=== PATIENT | female | born 1935 | race African-American/Black ===

== ENCOUNTER 2019-04-22 08:28 | Outpatient (CLI) | payer MEDICARE, OTHER, SELFPAY ==
--- NOTE | ~2019-04-22 | US_ITS ---
EXAMINATION: US retroperitoneal duplex ltd EXAM DATE: 04/22/2019 09:36 INDICATION: Hypertension. TECHNIQUE: Multiple grayscale and Doppler images of the kidneys and renal arteries were obtained. Co mparison is made to prior examination from 04/21/2010. FINDINGS: The aorta peak systolic velocity is 114 cm/s. The right renal artery peak systolic velocity is 63 cm/ s in the proximal segment, 45 cm/s in the mid segment, and 53 cm/s in the distal segment. The left re nal artery peak systolic velocity is 55 cm/s in the proximal segment, 36 cm/s in the mid segment, and 59 cm/s in the distal segment. IMPRESSION: 1. Renal artery Doppler velocities within normal limits. Reviewed, dictated and finalized at location A. HANDLE ASSEMBLER
--- NOTE | ~2019-04-22 | US_ITS ---
EXAMINATION: US renal BI EXAM DATE: 04/22/2019 09:37 INDICATION: Hypertension. TECHNIQUE: Multiple grayscale and Doppler images of the kidneys were obtained (by a technologist who performed the scan) and subsequently reviewed. Comparison is made to prior examination from 04/21/2010 . FINDINGS: Right kidney: There is normal contour and echogenicity. It measures 8.9 x 3.6 x 3.9 centimeters. The re is a 2 cm anechoic lesion consistent with cyst. There is no hydronephrosis. Left kidney: There is normal contour and echogenicity. It measures 10.2 x 5.5 x 5.1 centimeters. The re is a cyst measuring 1 cm. There is no hydronephrosis. Bladder unremarkable. IMPRESSION: 1. Small cyst in each kidney. Reviewed, dictated and finalized at location A. ERMAN OPERATOR
[2019-04-22 10:10] LABS: Blood Urea Nitrogen 21 mg/dL (7-17); Calcium 10.6 mg/dL (8.4-10.2); Carbon Dioxide 26 mmol/L (22-30); Chloride 101 mmol/L (98-107); Estimated Glomerular Filt Rate 44; Glucose 108 mg/dL (65-105); Potassium 4.9 mmol/L (3.4-5.0); Sodium 140 mmol/L (137-145)
== END 2019-04-22 08:29 | disposition home or self-care (01) ==
PROVIDERS: PCP Internal Medicine; Visit Provider Internal Medicine
DX: I12.9 Hypertensive chronic kidney disease with stage 1 through stage 4 chronic kidney disease, or unspecified chronic kidney disease (principal); R79.89 Other specified abnormal findings of blood chemistry; E11.22 Type 2 diabetes mellitus with diabetic chronic kidney disease; N18.1 Chronic kidney disease, stage 1; N28.1 Cyst of kidney, acquired
CPT/HCPCS: 36415; 76775; 80048; 93976

== ENCOUNTER 2020-04-03 08:27 | Outpatient (CLI) | payer MEDICARE, OTHER, SELFPAY ==
--- NOTE | ~2020-04-03 | MM_ITS ---
EXAMINATION: MM screening krystyna BI w eric HISTORY: Screening TECHNIQUE: Craniocaudal and mediolateral oblique 3-D tomosynthesis images were obtained and synthetic 2-D images were generated. CAD analysis was submitted and interpreted. COMPARISON: Comparison to multiple prior studies sequentially, with oldest reviewed study dated 09/2015. BREAST PARENCHYMAL COMPOSITION: The breasts are heterogeneously dense, which may obscure small masses . FINDINGS: There is no evidence of suspicious mass, calcification, or architectural distortion to sugg est malignancy in either breast. There has been no suspicious interval change. IMPRESSION: 1. No mammographic evidence of malignancy. 2. Recommend routine screening mammography in one year. BI-RADS Category 1: Negative Reviewed, dictated and finalized at location A. VERY TECH
== END 2020-04-03 08:28 | disposition home or self-care (01) ==
LOC: ANHIMG 08:32
PROVIDERS: PCP Internal Medicine; Visit Provider Student in an Organized Health Care Education/Training Program
DX: Z12.31 Encounter for screening mammogram for malignant neoplasm of breast (principal)
CPT/HCPCS: 77063; 77067

== ENCOUNTER 2020-11-19 14:31 | Emergency (ER) | payer MEDICARE, OTHER, SELFPAY ==
[2020-11-19 14:43] VITALS: BP 186/78; PULSE 92; RESP 16; TEMP 36.9; O2SAT 100
--- NOTE | 2020-11-19 14:44 | ED.BACK ---
HPI - Back Pain/Injury General Chief Complaint: Back Pain/Injury Stated Complaint: L SHOULDER/NECK PAIN Time Seen by Provider: 11/19/20 15:20 Source: patient and RN notes reviewed Mode of arrival: ambulatory Limitations: no limitations History of Present Illness HPI Narrative: 85-year-old female presents with concern for 2 to 3-day history of pain between the left-sided neck and the left shoulder. Reports that as a spine is numbing type of pain. She reports pain worsens when she turns her head toward the left. She denies any injury, trauma. Reports repetitive yard work earlier this week. She denies chest pain, shortness of breath. Denies pain radiating down the left arm. She denies any left arm weakness, tingling. Reports she took Tylenol which slightly eased the pain, reports she used heat which slightly eased the pain. She denies redness, warmth, rash. MD elicited complaint: back pain Related Data Home Medications Medication Instructions Recorded Confirmed antiarthritic combination no.2 900 900 mg PO DAILY 04/11/19 11/19/20 mg tablet ascorbate calcium (vitamin C) 500 500 mg PO DAILY 04/11/19 11/19/20 mg tablet omega-3 fatty acids 1,000 mg 1,000 mg PO DAILY 04/11/19 11/19/20 capsule vitamin E (dl, acetate) 180 mg 400 unit PO DAILY 04/11/19 11/19/20 (400 unit) capsule multivitamin 1 tablet PO DAILY 01/01/20 11/19/20 Allergies Allergy/AdvReac Type Severity Reaction Status Date / Time No Known Allergies Allergy Verified 11/19/20 14:39 Review of Systems Review of Systems: CONSTITUTIONAL: Denies malaise, chills, sweats, or fever. CARDIOVASCULAR: Denies chest pain, palpitations, or edema. RESPIRATORY: Denies cough or dyspnea. SKIN: Denies rash or itching. Denies bruising, redness, swelling, warmth MUSCULOSKELETAL: Reports pain and spasming between the left neck and left shoulder NEUROLOGIC: Denies numbness, weakness, or headache. All systems reviewed & are unremarkable except as noted in HPI and below PMFSH Past Medical History Medical History Accelerated hypertension Benign essential hypertension Bilateral carotid bruits Bilateral hearing loss BMI 27.0-27.9,adult BMI 28.0-28.9,adult CKD (chronic kidney disease) Dependent edema DJD (degenerative joint disease) DM type 2 (diabetes mellitus, type 2) Elevated serum creatinine Encounter for routine adult health examination without abnormal findings Follow up Hypercalcemia Hyperlipidemia On fci drug therapy Surgical History Surgical History History of dilation and curettage History of hysterectomy Family History Family History Mother Hypertension Patient's mother is in good health Family history of dementia Father Acute myocardial infarction Social History Social History Smoking status: Never smoker Second hand tobacco smoke exposure: No Smoking end date: 03/06/1967 Alcohol intake: never Comments At time of signature, agree with nursing past medical, surgical, social and family history. There is no relevant family history pertinent to the presenting complaint Exam Narrative: GENERAL: Well-appearing, well-nourished, and in no acute distress. HEAD: Normocephalic, atraumatic. EYES: PERRLA, sclera clear, and EOMI. No nystagmus. ENT: Nares clear. Mucous membranes moist. . NECK: Supple. No lymphadenopathy. No jugular venous distension, thyromegaly, or carotid bruits. Carotids were easily palpable bilaterally. CHEST: No respiratory distress. Speaks in full sentences. HEART: Regular rate and rhythm. EXTREMITIES: Left upper extremity has normal range of motion, normal strength and sensation. No neck or shoulder tenderness palpation. SKIN: Warm, dry, no visible rash. No skin erythema, warmth, bruising, swelling NE
[2020-11-19 14:50] VITALS: BP 186/78; PULSE 92; RESP 16; TEMP 36.9; O2SAT 100
== END 2020-11-19 15:40 | disposition home or self-care (01) ==
PROVIDERS: Emergency Provider Nurse Practitioner; PCP Internal Medicine
DX: M43.6 Torticollis (principal); I12.9 Hypertensive chronic kidney disease with stage 1 through stage 4 chronic kidney disease, or unspecified chronic kidney disease; E11.22 Type 2 diabetes mellitus with diabetic chronic kidney disease; N18.9 Chronic kidney disease, unspecified
CPT/HCPCS: 99213; G0463

== ENCOUNTER 2021-04-22 09:06 | Outpatient (CLI) | payer MEDICARE, OTHER, SELFPAY ==
--- NOTE | ~2021-04-22 | MM_ITS ---
EXAMINATION: MM screening krystyna BI w eric HISTORY: Screening TECHNIQUE: Craniocaudal and mediolateral oblique 3-D tomosynthesis images were obtained and synthetic 2-D images were generated. CAD analysis was submitted and interpreted. COMPARISON: Comparison to multiple prior studies sequentially, with oldest reviewed study dated 10/2016. BREAST PARENCHYMAL COMPOSITION: The breasts are heterogeneously dense, which may obscure small masses . FINDINGS: There is no evidence of suspicious mass, calcification, or architectural distortion to sugg est malignancy in either breast. There has been no suspicious interval change. IMPRESSION: 1. No mammographic evidence of malignancy. 2. Recommend routine screening mammography in one year. BI-RADS Category 1: Negative Reviewed, dictated and finalized at location A. L COATER
== END 2021-04-22 09:07 | disposition home or self-care (01) ==
LOC: ANHIMG 09:09
PROVIDERS: PCP Internal Medicine; Visit Provider Internal Medicine
DX: Z12.31 Encounter for screening mammogram for malignant neoplasm of breast (principal)
CPT/HCPCS: 77063; 77067

== ENCOUNTER 2021-07-29 14:39 | Outpatient (CLI) | payer MEDICARE, OTHER, SELFPAY ==
--- NOTE | 2021-07-29 15:02 | ECHO_ITS ---
Patient Info Name: Loraine George White Age: 85 years : 1935 Gender: Female Ht: 67 in Wt: 175 lbs BSA: 1.95 m2 HR: 82 bpm BP: 191 / 84 mmHg Technical Quality: Good Exam Date: 07/29/2021 3:17 PM Exam Location: [facility] Patient Status: Outpatient Admit Date: 07/29/2021 Staff Ordering Physician: Juan Carlos Eisenberg MD Automotive Assembler: Blanca Shipley RDCS Attending Provider: Juan Carlos Eisenberg MD Referring Physician: Faina DOLAN; Exam Type: CA echo doppler color flow Study Info Indications - chest pain ventricular premature depolrazation Complete two-dimensional, color flow and Doppler transthoracic echocardiogram is performed. Summary 1. Complete two-dimensional, color flow and Doppler transthoracic echocardiogram is performed. 2. Left ventricular chamber dimension is normal. 3. Left ventricular systolic function is normal, estimated at 60-65%. 4. There is mildly increased left ventricular wall thickness. 5. The left ventricular diastolic function is grade I diastolic dysfunction. 6. E/e' 14 is mildly elevated. 7. Global longitudinal strain is normal at -25.2%. 8. Left atrial chamber dimension is severely enlarged. 9. There is mild mitral valve regurgitation. 10. There is mild tricuspid valve regurgitation. 11. Severe pulmonary hypertension, estimated pulmonary arterial systolic pressure is 66 mmHg. 12. There is trivial pericardial effusion. Left Ventricle E/e' 14 is mildly elevated. Global longitudinal strain is normal at -25.2%. Left ventricular chamber dimension is normal. Left ventricular systolic function is normal, estimated at 60-65%. There is mildly increased left ventricular wall thickness. The left ventricular diastolic function is grade I diastolic dysfunction. Right Ventricle Right ventricular systolic function is normal and with normal TAPSE 2.2 cm. Right ventricular chamber dimension is normal. Left Atria Left atrial chamber dimension is severely enlarged. Right Atria Right atrial chamber dimension is normal. Aortic Valve The aortic valve is trileaflet. There is no aortic valve stenosis. There is no aortic valve regurgitation. Pulmonic Valve There is no pulmonic regurgitation. Mitral Valve There is no mitral valve stenosis. There is mild mitral valve regurgitation. Tricuspid Valve There is mild tricuspid valve regurgitation. Severe pulmonary hypertension, estimated pulmonary arterial systolic pressure is 66 mmHg. Pericardium/Pleural There is trivial pericardial effusion. Inferior Vena Cava Normal inferior vena cava with >50% collapse upon inspiration consistent with normal right atrial pressure, 5 mmHg. Aorta The aortic root size at the sinus of Valsalva is normal. Left Ventricular Outflow Tract Name Value Normal LVOT 2D LVOT Diameter 2.0 cm LVOT Doppler LVOT Peak Gradient 9 mmHg LVOT Mean Gradient 5 mmHg LVOT VTI 34 cm LVOT VTI/AV VTI Ratio 0.8 LVOT Stroke Volume 108 ml LVOT CO
--- NOTE | 2021-08-04 15:20 | WPDHOLTEREM ---
Holter/Event Monitor Holter/Event Monitor Date of procedure: 07/29/21 Holter/Event Procedure: 48 Hr Holter Monitor Indications: PVC's Conclusion: 1. 48 hour holter monitor on 07/29/21. 2. Predominant rhythm is sinus rhythm. HR range 34-126 bpm; average HR 60 bpm. HR at 34 bpm is at 03:07. 3. There are 2,877 premature supraventricular complexes, 18 supraventricular couplets, 43 supraventricular bigeminy, and 15 supraventricular trigeminy. There is one episode of atrial tachycardia at 158 bpm lasting 7 beats. 4. There are 730 premature ventricular complexes, 11 ventricular couplets, 1 ventricular triplet, 29 ventricular bigeminy. There is one episode of ventricular tachycardia at 150 bpm lasting 6 beats. 5. No sinoatrial or atrioventricular blocks. One pause 2.2 seconds at 03:51. 6. No symptoms available for correlation.
== END 2021-07-29 14:40 | disposition home or self-care (01) ==
PROVIDERS: PCP Internal Medicine; Visit Provider Internal Medicine
DX: R07.89 Other chest pain (principal); I49.3 Ventricular premature depolarization; I27.20 Pulmonary hypertension, unspecified; I08.1 Rheumatic disorders of both mitral and tricuspid valves
CPT/HCPCS: 93225; 93226; 93306

== ENCOUNTER 2021-08-12 12:09 | Outpatient (CLI) | payer MEDICARE, OTHER, SELFPAY ==
--- NOTE | ~2021-08-12 | CT_ITS ---
EXAMINATION: CT diagnostic chest wo con DATE: 08/12/2021 12:56 INDICATION: Pulmonary hypertension TECHNIQUE: Computed tomography (CT) of the chest was performed without intravenous contrast. Automate d exposure control and iterative reconstruction technique were employed. Exam dose: 133.02 mGy-cm to tadeo exam DLP. COMPARISON: None FINDINGS: The lungs are clear of infiltrate or consolidation. There is heterogeneous density and mild enlargement of the right lobe of thyroid gland. Cardiomegaly. No pericardial or pleural effusion. There is aortic and great vessel and coronary artery calcification. No thoracic aortic aneurysm. No hilar or mediastinal mass lesion or lymphadenopathy. There is prominent calcification at the origins of the celiac, superior mesenteric and left renal art eries. 4.5 cm left hepatic cyst. 6.7 mm hypoattenuating right posterior hepatic lesion, possibly a small cyst. No adrenal mass lesion is evident. There is incomplete rotation of the left kidney, with the left renal pelvis directed anteriorly. Prominent bilateral glenohumeral joint space narrowing and benign humeral head and glenoid cysts, lik alon degenerative. Prominent degenerative changes of the lower cervical, thoracic and included upper lumbar spine, inclu ding very prominent degenerative spurring throughout the mid and lower thoracic spine. No suspicious osteolytic or osteoblastic lesions are noted. IMPRESSION: Cardiomegaly Aortic and coronary atherosclerosis Prominent atherosclerotic calcification at the origins of the celiac, superior mesenteric and left re nal arteries No active pulmonary disease Heterogeneous density and enlargement of right lobe of thyroid gland Hepatic probable cysts Reviewed, dictated and finalized at Location A. Reviewed, dictated and finalized at location A. IMPRESSION: Cardiomegaly Aortic and coronary atherosclerosis Prominent atherosclerotic calcification at the origins of the celiac, superior mesenteric and left renal arteries No active pulmonary disease Heterogeneous density and enlargement of right lobe of thyroid gland Hepatic probable cysts
== END 2021-08-12 12:10 | disposition home or self-care (01) ==
LOC: ANHIMG 12:12
PROVIDERS: PCP Internal Medicine; Visit Provider Internal Medicine
DX: I27.20 Pulmonary hypertension, unspecified (principal); I51.7 Cardiomegaly; I25.10 Atherosclerotic heart disease of native coronary artery without angina pectoris
CPT/HCPCS: 71250

== ENCOUNTER 2021-08-25 11:53 | Outpatient (CLI) | payer MEDICARE, OTHER, SELFPAY ==
--- NOTE | 2021-08-25 14:36 | WPDSIXMINUTE ---
Six Minute Walk Procedure Procedure Performed Pulmonary Stress Test (6 min walk) Six Minute Walk Six Minute Walk: This 6 minute walk test was carried out with the patient breathing ambient air. The pre walk oxyhemoglobin saturation was 91%. The patient walked a total distance of 1000 ft with no stops during testing. During the walk the oxyhemoglobin saturation remained in the range of 89% to 91%. The perceived dyspnea on the Sharri scale was 1 at baseline and increased to 2 at the end of the testing. Impression: No significant oxyhemoglobin desaturation on this testing.
--- NOTE | 2021-08-25 14:41 | WPDPFTINT ---
PFT Procedure Performed PFT Procedure Performed Spirometry with Pre/Post Bronchodilator Plethysmography (Lung Vol) Diffusing Cap (DLCO) Flow Vol Loop PFT Interpretation Lung volumes were measured with the body plethysmography method. The diminished lung volumes are indicative of restrictive respiratory disease. Spirometry showed normal expiratory flow rates and a normal FEV1 to FVC ratio of 80%. Following administration of a bronchodilator there was no significant change in the expiratory flow rates. Lung diffusion capacity is moderately reduced at 50% predicted. The flow volume loop is unremarkable. Impression: Mild restrictive respiratory disease. Moderately reduced lung diffusion capacity.
== END 2021-08-25 11:54 | disposition home or self-care (01) ==
PROVIDERS: PCP Internal Medicine; Visit Provider Internal Medicine
DX: I27.20 Pulmonary hypertension, unspecified (principal)
CPT/HCPCS: 94060; 94618; 94726; 94729

== ENCOUNTER 2021-08-28 09:11 | Outpatient (CLI) | payer MEDICARE, OTHER, SELFPAY ==
--- NOTE | ~2021-08-28 | CT_ITS ---
EXAMINATION: CTA abdomen DATE: 08/28/2021 10:54 INDICATION: Abdominal atherosclerosis seen in the recent chest CT TECHNIQUE: Computed tomographic angiography (CTA) of the abdomen was performed with 100 mL Omnipaque- 350 intravenous contrast. Maximum intensity projection 3D-reconstructions of the aorta and other gabi sandra were constructed by the technologist on a separate workstation. The dose-length product (DLP) wa s 198.20 mGy-cm. Automated exposure control and iterative reconstruction technique were employed. COMPARISON: 08/13/2019 FINDINGS: Minimal dependent atelectasis is present in the lung bases. Cardiomegaly is noted. There is a 4.8 cm cyst of the left hepatic lobe. The spleen, pancreas, gallbladder, and adrenal glands are un remarkable. There is a 2.2 cm cyst of the right kidney lower pole. The left kidney demonstrates an ab normal axis but is otherwise unremarkable. There is severe lumbar spondylosis. There is a large volum e of colonic stool. A tiny fat-containing umbilical hernia is noted. There is calcified atherosclerosis without hemodynamically significant stenosis at the origins of the celiac axis and superior mesenteric artery. Single renal arteries are present. There is calcified at herosclerosis with severe stenosis at the origin of left renal artery. There is mild atherosclerosis without hemodynamically significant stenosis at the origin of the right renal artery. There is no ane urysm or dissection of the abdominal aorta. IMPRESSION: 1. 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 Reviewed, dictated and finalized at location A. IMPRESSION: 1. 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
[2021-08-28 10:42] LABS: Estimated Glomerular Filt Rate 57
== END 2021-08-28 09:12 | disposition home or self-care (01) ==
PROVIDERS: PCP Internal Medicine; Visit Provider Internal Medicine
DX: I70.8 Atherosclerosis of other arteries (principal); K55.1 Chronic vascular disorders of intestine
CPT/HCPCS: 74175; Q9967

== ENCOUNTER 2021-09-02 09:37 | Outpatient (CLI) | payer MEDICARE, OTHER, SELFPAY ==
--- NOTE | ~2021-09-02 | DEXA_ITS ---
Bone Density Report Name: NAYELI HUA Age: 85 Sex: Female Ethnicity: Black Date of : 1935 Indication: monitoring treatment; height loss; hysterectomy; postmenopausal Referring Provider: LEIGH GIBSON Study: Bone densitometry was performed. Exam Date: September 02, 2021 Accession number: [id number] Bone Density: Region BMD T-score Z-score Classification AP Spine(L1, L2, L3) 0.982 -0.3 1.8 Normal Femoral Neck (Left) 0.770 -0.7 0.7 Normal Total Hip (Left) 0.854 -0.7 0.6 Normal Femoral Neck (Right) 0.756 -0.8 0.6 Normal Total Hip (Right) 0.797 -1.2 0.2 Osteopenia Total Hip Mean 0.826 -1.0 0.4 Normal World Health Organization criteria for BMD impression classify patients as: Normal (T-score at or above -1.0), Osteopenia (T-score between -1.0 and -2.5), or Osteoporosis (T-score at or below -2.5). 10-year Fracture Risk: FRAX not reported because: Treated for osteoporosis Previous Exams: Region Exam Age BMD T-score BMD Change BMD Change Date g/cm2 vs Baseline vs Previous AP Spine (L1-L3) 09/02/2021 85 0.982 -0.3 0.050 (5.4%)# -0.053 (-5.2%) 06/04/2015 79 1.035 0.2 0.104 (11.1%)# 0.104 (11.1%)# 01/18/2012 76 0.931 -0.8 Total Hip(Left) 09/02/2021 85 0.854 -0.7 -0.055 (-6.0%) -0.079 (-8.5%) 06/04/2015 79 0.934 -0.1 0.025 (2.7%)# 0.025 (2.7%)# 01/18/2012 76 0.909 -0.3 Total Hip(Right) 09/02/2021 85 0.797 -1.2 -0.056 (-6.6%) -0.115 (-12.6% 06/04/2015 79 0.912 -0.2 0.059 (6.9%)# 0.059 (6.9%)# 01/18/2012 76 0.853 -0.7 *Denotes significance at 95% confidence level, LSC for AP Spine = 0.022 g/cm2, LSC for Total Hip = 0.027 g/cm2 # Denotes dissimilar scan types or analysis methods Clinical Information Provided by Patient: Is being treated for osteoporosis Has used the following medications: Fosamax (i.e. alendronate), Vitamin D, Calcium Has the following medical conditions: Hysterectomy Patient maximum height was 70 Menopause Age: 50 Drinks caffeinated beverages Onset of menses at age 17 Number of children 3 Impression: The patient has low bone mass, based on the Right Total Hip T-score. The BMD for the AP Spine (L1-L3) decreased, changing by -5.2% since the last DXA exam. The BMD for the Total Hip(Left) decreased, changing by -8.5% since the last DXA exam. The BMD for the Total Hip(Right) decreased, changing by -12.6% since the last DXA exam. Discussion: SIGNIFICANT BONE LOSS OBSERVED. Ad
== END 2021-09-02 09:38 | disposition home or self-care (01) ==
PROVIDERS: PCP Internal Medicine; Visit Provider Student in an Organized Health Care Education/Training Program
DX: Z78.0 Asymptomatic menopausal state (principal); M85.851 Other specified disorders of bone density and structure, right thigh
CPT/HCPCS: 77080

== ENCOUNTER 2021-10-29 10:58 | Outpatient (CLI) | payer MEDICARE, OTHER, SELFPAY ==
--- NOTE | ~2021-10-29 | XR_ITS ---
EXAMINATION: XR chest 2V 10/29/2021 11:17 INDICATION: Pulmonary hypertension PROCEDURE: 2 view chest COMPARISON: No prior studies for comparison. FINDINGS: The lungs are clear. The lungs are hyperinflated which is consistent with, but not diagnost ic of chronic obstructive pulmonary disease. The cardiomediastinal silhouette is within normal limit s. There are no pleural effusions. There is no pneumothorax suspected. Moderate thoracic spondylosi s. IMPRESSION: 1: NO ACUTE CARDIOPULMONARY DISEASE. Reviewed, dictated and finalized at location A.
--- NOTE | ~2021-10-29 | NM_ITS ---
EXAMINATION: NM pulmonary perfusion DATE: 10/29/2021 11:52 INDICATION: Pulmonary hypertension. TECHNIQUE: 5.5 mCi Tc-99m MAA was administered intravenously for perfusion images. Scintigraphic augustus ges of the chest were obtained. COMPARISON: Chest 2 views 10/29/2021, CT abdomen 08/28/2021 FINDINGS: Perfusion images show small and moderate sized defects involving left lower lobe and left upper lobe. Cardiomegaly is noted. IMPRESSION: 1. Nondiagnostic (intermediate probability for pulmonary embolism). Reviewed, dictated and finalized at location A.
== END 2021-10-29 10:59 | disposition home or self-care (01) ==
PROVIDERS: PCP Internal Medicine; Visit Provider Internal Medicine Pulmonary Disease
DX: R06.02 Shortness of breath (principal)
CPT/HCPCS: 71046; 78580; A9540

== ENCOUNTER 2022-06-16 09:12 | Outpatient (CLI) | payer MEDICARE, OTHER, SELFPAY ==
--- NOTE | ~2022-06-16 | MM_ITS ---
EXAMINATION: MM screening krystyna BI w eric HISTORY: Screening mammogram TECHNIQUE: Craniocaudal and mediolateral oblique 3-D tomosynthesis images were obtained and synthetic 2-D images were generated. CAD analysis was submitted and interpreted. COMPARISON: April 22, 2021, April 03, 2020 screening mammogram examinations BREAST PARENCHYMAL COMPOSITION: The breasts are heterogeneously dense, which may obscure small masses . FINDINGS: There is no evidence of suspicious mass, calcification, or architectural distortion to sugg est malignancy in either breast. There has been no suspicious interval change. IMPRESSION: 1. No mammographic evidence of malignancy. 2. Recommend routine screening mammography in one year. BI-RADS Category 1: Negative Reviewed, dictated and finalized at location A.
== END 2022-06-16 09:13 | disposition home or self-care (01) ==
PROVIDERS: PCP Internal Medicine; Visit Provider Internal Medicine
DX: Z12.31 Encounter for screening mammogram for malignant neoplasm of breast (principal)
CPT/HCPCS: 77063; 77067

== ENCOUNTER 2023-08-15 09:09 | Outpatient (CLI) | payer MEDICARE, OTHER, SELFPAY ==
--- NOTE | ~2023-08-15 | MM_ITS ---
EXAMINATION: MM screening krystyna BI w eric HISTORY: Screening TECHNIQUE: Craniocaudal and mediolateral oblique 3-D tomosynthesis images were obtained and synthetic 2-D images were generated. CAD analysis was submitted and interpreted. COMPARISON: Comparison to multiple prior studies sequentially, with oldest reviewed study dated 05/2018. BREAST PARENCHYMAL COMPOSITION: Not dense: There are scattered areas of fibroglandular density. FINDINGS: There is no evidence of suspicious mass, calcification, or architectural distortion to sugg est malignancy in either breast. There has been no suspicious interval change. IMPRESSION: 1. No mammographic evidence of malignancy. 2. Recommend routine screening mammography in one year. BI-RADS Category 1: Negative Reviewed, dictated and finalized at location B.
== END 2023-08-15 09:10 | disposition home or self-care (01) ==
PROVIDERS: PCP Internal Medicine; Visit Provider Obstetrics & Gynecology
DX: Z12.31 Encounter for screening mammogram for malignant neoplasm of breast (principal)
CPT/HCPCS: 77063; 77067

== ENCOUNTER 2024-04-13 12:52 | Emergency (ER) | payer MEDICARE, OTHER, SELFPAY ==
[2024-04-13 13:58] VITALS: BP 151/71; PULSE 98; RESP 16; TEMP 36.6; O2SAT 98
--- NOTE | 2024-04-13 14:01 | ED.BACK ---
HPI - Back Pain/Injury General Chief Complaint: Back Pain/Injury Stated Complaint: BACK PAIN/BILAT KNEE PAIN/UNSTEADY Time Seen by Provider: 04/13/24 14:00 Source: patient Mode of arrival: ambulatory Limitations: no limitations History of Present Illness HPI Narrative: Loraine is an 88-year-old female patient presenting to the clinic today with complaints of low back pain, urinary incontinence, legs feeling wobbly, and unsteady on her feet. She reports symptoms started approximately 5 days ago. Related Data Home Medications ?Medication ?Instructions ?Recorded ?Confirmed ?Last Taken ?Type antiarthritic combination no.2 900 900 mg PO DAILY 04/11/19 02/26/24 Unknown History mg tablet (glucosamine-chondroitin) ascorbate calcium (vitamin C) 500 500 mg PO DAILY 04/11/19 02/26/24 Unknown History mg tablet omega-3 fatty acids 1,000 mg 1,000 mg PO DAILY 04/11/19 02/26/24 Unknown History capsule (Fish Oil Concentrate) vitamin E (dl, acetate) 180 mg 400 unit PO DAILY 04/11/19 02/26/24 Unknown History (400 unit) capsule multivitamin 1 tablet PO DAILY 01/01/20 02/26/24 Unknown History Allergies Allergy/AdvReac Type Severity Reaction Status Date / Time No Known Allergies Allergy Verified 04/13/24 13:50 Review of Systems Review of Systems: Pertinent positives per HPI. Patient denies any fever, chills, rash, headache, visual changes, dizziness, cough, runny nose, sore throat, shortness of breath, chest pain, palpitations, nausea, vomiting, diarrhea, constipation, abdominal pain. [facility] Past Medical History Medical History History of tobacco abuse BMI 26.0-26.9,adult Renal artery stenosis Grade I diastolic dysfunction BMI 24.0-24.9, adult Encounter for Medicare annual wellness exam Abnormal mammogram Osteopenia Pedal edema Bunion PVC's (premature ventricular contractions) Onychomycosis Hammer toe Thickened nails BMI 25.0-25.9,adult BMI 28.0-28.9,adult Bilateral hearing loss Dependent edema Bilateral carotid bruits BMI 27.0-27.9,adult CKD (chronic kidney disease) Follow up Accelerated hypertension Elevated serum creatinine DM type 2 (diabetes mellitus, type 2) Encounter for routine adult health examination without abnormal findings On halfway drug therapy DJD (degenerative joint disease) Hypercalcemia Hyperlipidemia Benign essential hypertension Surgical History Surgical History History of dilation and curettage History of hysterectomy Family History Family History Mother Hypertension Patient's mother is in good health Family history of dementia Father Acute myocardial infarction Social History Social History Years smoked: 5 Smoking status: Former smoker Tobacco type: cigarettes Second hand tobacco smoke exposure: Yes Smoking end date: 03/06/1967 Alcohol intake: former Lack of Transportation: No Lack of Food: Never True Current Housing: I Have Housing Concerned About Future Housing: No Difficulty Paying Gas/Electric Bills: No Difficulty Paying for Meds: No Currently Unemployed: No Education: High School Diploma/GED Difficulty w/ Childcare or Family Care: No Living arrangements: with family Occupation/Education: retired Gender identity (if verbalized by the patient): Female Comments At the time of my signature, I reviewed and agree with the nursing past medical, surgical, social, and family history. There is no relevant family history pertinent to the patient complaint. Exam Narrative: General: Well-developed, well nourished, in no apparent distress Head: Normocephalic, atraumatic. Cardio: Regular rate and rhythm, s1 and s2 normal, no murmur appreciated. Resp: Clear to auscultation bilaterally, no rhonchi, rales, wheezing or rubs. Musculoskeletal: No deformity, bilateral lower back tender pulp drier to palpation, grossly normal range of motion, muscle strength strong and equal, peripheral pulse strong, no edema, no cyanosis, cautious gait and station, sitting in a wheelchair Course Course Emergency Course: Portions of this record may have been created with voice recognition software. Level of Care: Express Care Visit Vital Signs Vital signs: Vital Signs Temperature 36.6 C 04/13/24 13:58 Pulse Rate 98 04/13/24 13:58 Respiratory Rate 16 04/13/24 13:58 Blood Pressure 151/71 H 04/13/24 13:58 Pulse Oximetry 98 04/13/24 13:58 Temperature 36.6 C 04/13/24 13:58 Pulse Rate 98 04/13/24 13:58 Respiratory Rate 16 04/13/24 13:58 Blood Pressure 151/71 H 04/13/24 13:58 Pulse Oximetry 98 04/13/24 13:58 Vital signs reviewed MDM - Back Pain/Injury MDM Narrative Medical decision making narrative: At the time of visit patient is resting comfortably on the exam table. Patient appears to be nontoxic. Labs: Urinalysis positive for protein, glucose, and blood. We will send for culture Plan: I suspect patient likely has a UTI. Prescription for ciprofloxacin was sent to the pharmacy. Supportive measures were discussed with the patient and they voiced understanding discharge instructions and agrees to treatment plan. Return precautions reviewed Differential Diagnosis Differential diagnosis: Likely lumbar radiculopathy, sciatica, strain of lumbar region, renal colic, pyelonephritis, thoracic back pain, AAA, discitis and other (UTI) Lab Data Labs: Lab Results 04/13/24 Range/Units 14:27 POC Urine Color Yellow POC Urine Clarity Clear POC Urine pH 5.5 POC Ur Specif [place] 1.010 POC Urine Protein 2+ (Negative) POC Ur Glucose (UA) 3+ (Negative) POC Urine Ketones Negative (Negative) POC Urine Blood Trace (Negative) POC Urine Nitrite Negative (Negative) POC Urine Bilirubin Negative (Negative) POC Urine Urobilinogen 1.0 POC U Leukocyte Esteras Negative (Negative) Discharge Plan Discharge Clinical Impression: Glucosuria Protein in urine Qualifiers: Proteinuria type: unspecified Qualified Code(s): R80.9 - Proteinuria, unspecified Hematuria Qualifiers: Hematuria type: unspecified type Qualified Code(s): R31.9 - Hematuria, unspecified Low back pain Qualifiers: Chronicity: acute Back pain laterality: bilateral Sciatica presence: without sciatica Qualified Code(s): M54.50 - Low back pain, unspecified Patient Disposition: Home, Self-Care Condition: Stable Instructions: Antibiotic Form, Acute Low Back Pain (ED) Additional Instructions: Urinalysis positive for protein, blood, and glucose. We will send urine for culture Take any prescription medication only as prescribed-Bactrim as prescribed May use heat or ice to the affected area May use blue emu, lidocaine patches, or asper cream to affected area- do not apply heat or ice directly over cream- can cause burn. Increase fluids and stay well hydrated Wipe front to back. May use wet wipes. Avoid tub baths If sexually active- pee before and after intercourse. Wear cotton panties Avoid tight clothing up against the genitals Follow up with your PCP in 3-5 days if symptoms persist Patient Language: Kyrgyz Prescriptions: New ciprofloxacin HCl [Cipro] 500 mg tablet 500 mg PO Q12H 7 Days Qty: 14 0RF No Action multivitamin Tablet 1 tablet PO DAILY diltiazem HCl 240 mg capsule,extended release 24hr 240 mg PO BID Qty: 180 1RF ascorbate calcium (vitamin C) 500 mg tablet 500 mg PO DAILY vitamin E (dl, acetate) 400 unit capsule 400 unit PO DAILY glucosamine-chondroitin 900 mg tablet 900 mg PO DAILY omega-3 fatty acids [Fish Oil Concentrate] 1,000 mg capsule 1,000 mg PO DAILY Rx Instructions: Pt only taking 400 daily hydralazine 100 mg tablet 100 mg PO BID Qty: 180 1RF aspirin [Adult Low Dose Aspirin] 81 mg tablet,delayed release (DR/EC) 81 mg PO DAILY Qty: 90 2RF cholecalciferol (vitamin D3) 25 mcg (1,000 unit) capsule 1,000 unit PO DAILY Qty: 90 1RF Jardiance 25 mg tablet 25 mg PO DAILY Qty: 90 1RF guanfacine 2 mg tablet 2 mg PO DAILY Qty: 90 1RF rosuvastatin 20 mg tablet 20 mg PO DAILY Qty: 90 1RF telmisartan-hydrochlorothiazid 80-25 mg tablet 1 tablet PO DAILY Qty: 90 3RF Follow-up/Referrals: Juan Carlos Eisenberg MD [Primary Care Provider] - Time of Disposition: 14:35 Quality NIHSS Nursing Documentation ED NIHSS nursing documentation: reviewed/agree
[2024-04-13 14:29] LABS: EDUAAPPEAR Clear; EDUABILI Negative (Negative); EDUABLOOD Trace (Negative); EDUACOLOR1 Yellow; EDUAGLUCOSE 3+ (Negative); EDUAKETONE Negative (Negative); EDUALEUKO Negative (Negative); EDUANITRATE Negative (Negative); EDUAPH 5.5; EDUAPROTEIN 2+ (Negative)
== END 2024-04-13 14:46 | disposition home or self-care (01) ==
PROVIDERS: Emergency Provider Nurse Practitioner Family; PCP Internal Medicine
DX: R81 Glycosuria (principal); R80.9 Proteinuria, unspecified; R31.9 Hematuria, unspecified; M54.50 Low back pain, unspecified; Z87.891 Personal history of nicotine dependence; I12.9 Hypertensive chronic kidney disease with stage 1 through stage 4 chronic kidney disease, or unspecified chronic kidney disease; E11.22 Type 2 diabetes mellitus with diabetic chronic kidney disease; N18.9 Chronic kidney disease, unspecified; Z79.84 Long term (current) use of oral hypoglycemic drugs; E78.5 Hyperlipidemia, unspecified; M85.80 Other specified disorders of bone density and structure, unspecified site; R09.89 Other specified symptoms and signs involving the circulatory and respiratory systems; I70.1 Atherosclerosis of renal artery
CPT/HCPCS: 81003; 87086; 99213; G0463

== ENCOUNTER 2024-04-18 11:26 | Outpatient (CLI) | payer MEDICARE, OTHER, SELFPAY ==
--- OUTSIDE RECORDS SUMMARY | 2024-04-18 11:34 | XMS_ITS | Referral Summary ---
Author Organization [facility] Address [address] [place] [address] Care Team Providers Care Life Manager Name Role Phone Juan Carlos Eisenberg MD Primary Care Provider [phone] Source Comments [facility],non-owned Affiliates and Associated Physician Practices is amultiple site organization consisting of ambulatory clinics and hospital sitesin [place], [place], [place] and [place]. This disclosure is being madepursuant to the Care Everywhere program and may not contain all information available regarding this patient. Last updated 17.[facility] Allergies No known active allergies Medications * Be aware that medications may not be up to date on this document. Alwaysverify current medications with the patient. Medication Sig Dispensed Refills Start Date End Date Status lisinopril (PRINIVIL; ZESTRIL) 40 MG tablet Take 40 mg by mouth once daily. Active telmisartan-hydrochlor othiazide (MICARDIS HCT) 80-25 MG Take 1 Tab by mouth once daily. Active verapamil SR 24hr (VERELAN) 120 MG capsule Take 120 mg by mouth once daily. Active vitamin E (TOCOPHERYL) 400 UNIT capsule Take 400 Units by mouth once daily. Active [place]-3 Fatty Acids (FISH OIL) 1200 MG CAPS Take by mouth. Active potassium chloride (KLOR-CON M;K-DUR) 10 MEQ tablet Take 10 mEq by mouth once daily. Active calcium carbonate 650 MG tablet Take 650 mg by mouth once daily. Active Glucosamine-Chondroit- Vit C-Mn (GLUCOSAMINE CHONDR 500 COMPLEX) CAPS Take by mouth. Active aspirin EC (ECOTRIN) 81 MG tablet Take 81 mg by mouth once daily. Active simvastatin (ZOCOR) 20 MG tablet Take 20 mg by mouth at bedtime. Active Other Med for low bone density. Once a week Active bisACODYL EC (DULCOLAX) 5 MG tabletIndications:Scre en for colon cancer Take 2 Tabs by mouth once as needed for 1 dose. 2 Tab 0 03/26/2013 Active Social History Tobacco Use Types Packs/Day Years Used Date Smoking Tobacco: Never Smokeless Tobacco: Never Alcohol Use Standard Drinks/Week Comments No 0 (1 standard drink = 0.6 oz pur e alcohol) Sex and Gender Information Value Date Recorded Sex Assigned at Not on file Gender Identity Not on file Sexual Orientation Not on file Last Filed Vital Signs Vital Sign Reading Time Taken Comments Blood Pressure 142/77 05/21/2013 9:24 AM CDT Pulse 74 05/21/2013 9:24 AM CDT Temperature - - Respiratory Rate 20 03/21/2013 12:21 PM INSURANCE FOLLOW UP SPECIALIST Oxygen Saturation 96% 05/21/2013 9:24 AM CDT Inhaled Oxygen Concentration - - Weight 86.2 kg (190 lb) 05/21/2013 7:36 AM CDT Height 175.3 cm (5' 9 ) 05/21/2013 7:36 AM CDT Body Mass Index 28.06 05/21/2013 7:36 AM CDT Plan of Treatment Not on file Care Teams Life Manager Relationship Specialty Start Date End Date Juan Carlos Eisenberg MD [address] [place] [id number] PCP - General Internal Medicine 01/29/13
--- OUTSIDE RECORDS SUMMARY | 2024-04-18 11:34 | XMS_ITS | Continuity of Care Document ---
Author Organization [facility] Address [address] [place] [address] [address] [place] [address] Phone Care Team Providers Care Concrete Bucket Unloader Name Role Phone Fowler OD, Andre Unavailable Unavailable Procedures Procedure Date Office/outpatient Visit, Est Office/outpatient Visit, Est Office/outpatient Visit, Est Advance Directives Directive Yes / No Effective Date File Name No Information Encounters Encounter Description Practice Location Reason(s) For Visit Diagnoses Date Provider Providers Copied on Encounter Office/outpat ient Visit, [facility], [address] [place] [address] [address], [place], [place], [id number], tel:[phone] [facility] No Information 0-200 7 Fowler OD Andre. [address], [place], [place], [facility], . tel:[phone] Office/outpat ient Visit, [facility], [address] [place] [address] [address], [place], [place], [id number], [place] tel:[phone] [facility] No Information Aug-3 0-200 7 Fowler OD Andre. [address] , [address], [place], [place], [facility], . tel:[phone] Office/outpat ient Visit, [facility], [address] [place] [address] [address], [place], [place], [id number], tel:[phone] [facility] No Information Aug-2 3-200 7 Fowler OD Andre. [address] , [address], [place], [address], [place]. tel:[phone] Family History Family Member Type Diagnosis Age At Onset No Information Payers Payer name Insurance type Covered libertarian ID Authorreneea tikurt(s) Medicare [facility] [id number] Mail Handlers Benefit Plan Commercial [id number] Social History Type Description Quantity Date Captured Comments Sex Female Smoking Status No Information Chief Complaint And Reason For Visit No Information Reason For Referral Reason For Referral No Information History Of Present Illness Encounter Date Complaint History Of Prese nt Illness No Information Functional Status Date Functional Assessmen t No Information Instructions Date Instruction Additional Infor mation No Information Assessments Type Assessment Date No Information Patient Care Teams Name Effective Dates (start - stop) Status Members No Information
--- OUTSIDE RECORDS SUMMARY | 2024-04-18 11:34 | XMS_ITS | Clinical Summary ---
Author Organization [facility] Address [address] [place] [address] Phone Care Team Providers Care Physical Therapy Nurse Name Role Phone Juan Carlos Eisenberg MD Primary Care Provider + Allergies No known active allergies Medications LISINOPRIL ORAL Take by mouth. Active diltiazem (CARDIZEM LA) 180 mg Extended Release 24 hour tablet Take 180 mg by mouth daily. Active Telmisartan-Hydr ochlorothiazid 80-25 mg Tablet Take by mouth. Active guanFACINE (TENEX) 2 mg Tablet Take 2 mg by mouth daily at bedtime. Active simvastatin (ZOCOR) 40 mg tablet Take 40 mg by mouth Daily LATE. Active risedronate 35 mg Tablet, Delayed Release (E.C.) Take by mouth. Active POTASSIUM (POTASSIMIN ORAL) Take by mouth. Active ASCORBIC ACID (VITAMIN C ORAL) Take by mouth. Active VITAMIN E ORAL Take by mouth. Active ERGOCALCIFEROL, VITAMIN D2, (VITAMIN D ORAL) Take by mouth. Active CALCIUM CARBONATE/VITAMI N D3 (CALCIUM + D ORAL) Take by mouth. Active metFORMIN (GLUCOPHAGE) 500 mg tablet Take 500 mg by mouth 2 times daily with meals. Active OMEGA-3 FATTY ACIDS (FISH OIL ORAL) Take by mouth. Active Active Problems Patient Care Coordination No te Formatting of this note migh t be different from the original. Primary Care: Juan Carlos Eisenberg MD Referring Provider: Shayy Grover MD [address] [facility] [address] [address] [place] [address] Other: Problem Noted Date Diagnosed Date Breast lump in female 03/20/2015 Social History Tobacco Use Types Packs/Day Years Used Date Smoking Tobacco: Former Cigarettes Q uit: 03/30/1985 Smokeless Tobacco: Never Comments No Sex and Gender Information Value Date Recorded Sex Assigned at Not on file Legal Sex Female 9:32 AM AGRIBUSINESS PROFESSOR Gender Identity Not on file Sexual Orientation Not on file Last Filed Vital Signs Vital Sign Reading Time Taken Comments Blood Pressure 178/94 03/30/2015 11:06 AM AGRIBUSINESS PROFESSOR Pulse 85 03/30/2015 11:06 AM AGRIBUSINESS PROFESSOR Temperature - - Respiratory Rate - - Oxygen Saturation - - Inhaled Oxygen Concentration - - Weight 83 kg (183 lb) 03/30/2015 11:06 AM AGRIBUSINESS PROFESSOR Height 175.3 cm (5' 9 ) 03/30/2015 11:06 AM AGRIBUSINESS PROFESSOR Body Mass Index 27.02 03/30/2015 11:06 AM AGRIBUSINESS PROFESSOR Plan of Treatment Health Maintenance Due Date Last Done Comments DTAP/TDAP/TD VACCINES (1 - Tdap) 1954 PNEUMOCOCCAL VACCINE 65+ YEARS (1 of 1 - PCV) 11/14/18 88 ZOSTER VACCINE (1 of 2) 11/15/1987 OSTEOPOROSIS SCREENING 2002 RSV VACCINE (60+ or ) (1 - 1-dose 75+ series) 2012 INFLUENZA VACCINE (#1) 2023 Insurance MEDICARE PART A AND B [employer] [facility] Address: [facility] [address] [place] [address] [employer] Care Teams Physical Therapy Nurse Relationship Specialty Start Date End Date Juan Carlos Eisenberg MD PCP - General Internal Medicine 03/30/15
--- OUTSIDE RECORDS SUMMARY | 2024-04-18 11:34 | XMS_ITS | Clinical Summary ---
Author Organization [facility] Address [address] [place] [address] Care Team Providers Care Ordinary Seaman Name Role Phone Juan Carlos Eisenberg MD Primary Care Provider Source Comments [facility],non-owned Affiliates and Associated Physician Practices is amultiple site organization consisting of ambulatory clinics and hospital sitesin [place], [place], [place] and [place]. This disclosure is being madepursuant to the Care Everywhere program and may not contain all information available regarding this patient. Last updated 17.[facility] Allergies No known active allergies Medications * [...] 400 Units by mouth once daily. Active Cast[place]-3 Fatty Acids (FISH OIL) 1200 MG CAPS [...] - Respiratory Rate 20 03/21/2013 12:21 PM DIRECTOR OF RECRUITMENT Oxygen Saturation 96% 05/21/2013 9:24 AM CDT Inhaled Oxygen Concentration - - Weight 86.2 kg (190 lb) 05/21/2013 7:36 AM CDT Height 175.3 cm (5' 9 ) 05/21/2013 7:36 AM CDT Body Mass Index 28.06 05/21/2013 7:36 AM CDT Plan of Treatment Health Maintenance Due Date Last Done Comments BONE DENSITY TESTING 1935 MEDICARE AWV 12 MONTHS 1937 DTAP/TDAP/TD VACCINES (1 - Tdap) 1956 PNEUMOCOCCAL VACCINE 50+ (1 of 1 - PCV) 11/15/1987 ZOSTER VACCINE (1 of 2) 11/15/1987 Respiratory Syncytial Virus (RSV) Vaccine Pt: or over 60 yrs (1 - 1-dose 75+ series) 2012 COVID-19 VACCINE ( - 2023-2 5 season) 2023 INFLUENZA VACCINE (#1) 2023 DEPRESSION SCREENING 03/06/2024 HEPATITIS B VACCINE Aged Out No longe r eligible based on patient's age to complete this topic HIB VACCINE Aged Out No longer eligi ble based on patient's age to complete this topic HPV VACCINE Aged Out No longer eligi ble based on patient's age to complete this topic MENINGOCOCCAL (Group B) VACCINE Aged Out No longer eligible based on patient's age to complete this topic MENINGOCOCCAL VACCINE Aged Out No edy tiffanie eligible based on patient's age to complete this topic Care Teams Ordinary Seaman Relationship Specialty Start Date End Date Juan Carlos Eisenberg MD [address] [place] [address] PCP - General Internal Medicine 01/29/13
--- OUTSIDE RECORDS SUMMARY | 2024-04-18 11:34 | XMS_ITS | Patient Health Summary ---
Author Organization [facility] Address [address] [place] [address] Care Team Providers Care Clinical Aide Name Role Phone Juan Carlos Eisenberg MD Primary Care Provider [phone] Note from [facility],non-owned Affiliates and Associated Physician Practices is amultiple site organization consisting of ambulatory clinics and hospital sitesin [place], [place], [place] and [place]. This disclosure is being madepursuant to the Care Everywhere program and may not contain all information available regarding this patient. Last updated 17.[facility] Allergies No known active allergies Medications * Be aware that medications may not be up to date on this document. Alwaysverify current medications with the patient. * lisinopril (PRINIVIL; ZESTRIL) 40 MG tablet Take 40 mg by mouth once daily. * telmisartan-hydrochlorothiazide (MICARDIS HCT) 80-25 MG Take 1 Tab by mouth once daily. * verapamil SR 24hr (VERELAN) 120 MG capsule Take 120 mg by mouth once daily. * vitamin E (TOCOPHERYL) 400 UNIT capsule Take 400 Units by mouth once daily. * [place]-3 Fatty Acids (FISH OIL) 1200 MG CAPS Take by mouth. * potassium chloride (KLOR-CON M;K-DUR) 10 MEQ tablet Take 10 mEq by mouth once daily. * calcium carbonate 650 MG tablet Take 650 mg by mouth once daily. * Snezgdvlkhx-Jogbomfpy-Evh C-Mn (GLUCOSAMINE CHONDR 500 COMPLEX) CAPS Take by mouth. * aspirin EC (ECOTRIN) 81 MG tablet Take 81 mg by mouth once daily. * simvastatin (ZOCOR) 20 MG tablet Take 20 mg by mouth at bedtime. * Other Med for low bone density. Once a week * bisACODYL EC (DULCOLAX) 5 MG tablet(Started 03/26/2013) Take 2 Tabs by mouth once as needed for 1 dose. Social History Tobacco Use Types Packs/Day Years [...] - Respiratory Rate 20 03/21/2013 12:21 PM POTATO PEELING MACHINE OPERATOR Oxygen Saturation 96% 05/21/2013 9:24 AM CDT Inhaled Oxygen Concentration - - Weight 86.2 kg (190 lb) 05/21/2013 7:36 AM CDT Height 175.3 cm (5' 9 ) 05/21/2013 7:36 AM CDT Body Mass Index 28.06 05/21/2013 7:36 AM CDT Procedures * COLONOSCOPY SCREEN(Performed 05/21/2013) Performed for Special screening for malignant neoplasms, colon * ENDOSCOPY, COLON, SCREENING(Performed 05/21/2013) * COLONOSCOPY SCREEN(Performed 03/21/2013) Performed for Special screening for malignant neoplasms, colon * ENDOSCOPY, COLON, SCREENING(Performed 03/21/2013) Results * ENDOSCOPY, COLON, SCREENING (05/21/2013 8:27 AM CDT) Report Endoscopy POC _ Patient Name: Loraine Madrigal Procedure Date: 05/21/2013 8:27 AM Date of : 1935 Admit Type: Outpatient Age: 77 Gender: Female Attending MD: Mesfin Almazan MD _ Procedure: Colonoscopy Indications: Screening for colorectal malignant neoplasm Providers: Mesfin Almazan MD (Doctor), Itzel Soto RN, Joana Doran, Dental Sales Representative Referring MD: Juan Carlos Eisenberg MD (Referring MD) Medicines: Monitored Anesthesia Care Complications: No immediate complications. _ Procedure: Pre-Anesthesia Assessment: - ASA Grade Assessment: II - A patient with mild systemic disease. - Airway Examination: Mallampati Class I (tonsillar pillars visualized). After I obtained informed consent, the scope was passed under direct vision. Throughout the procedure, the patient's blood pressure, pulse, and oxygen saturations were monitored continuously. The Colonoscope was introduced through the anus and advanced to the cecum, identified by appendiceal orifice and ileocecal valve. The colonoscopy was performed without difficulty. The patient tolerated the procedure well. The quality of the bowel preparation was fair. Impression: - Diverticulosis. - Tortuous colon. Findings: Diverticula were found in the colon. The in the colon was tortuous. _ Recommendation: - Repeat colonoscopy in 10 years for screening purposes. - Repeat colonoscopy sooner in the event of new symptoms ie: bleeding, weight loss or change in bowel habits etc, or if a family member (mother, father, sister, brother) is diagnosed with polyps or colon cancer. Procedure Code(s): --- Professional --- 47953, Colonoscopy, flexible, proximal to splenic flexure; diagnostic, with or without collection of specimen(s) by brushing or washing, with or without colon decompression (separate procedure) --- Technical --- 86556, Colonoscopy, flexible, proximal to splenic flexure; diagnostic, with or without collection of specimen(s) by brushing or washing, with or without colon decompression (separate procedure) Diagnosis Code(s): --- Professional --- V76.51, Special screening for malignant neoplasms of colon 751.5, Other anomalies of intestine 562.10, Diverticulosis of colon (without mention of hemorrhage) --- Technical --- V76.51, Special screening for malignant neoplasms of colon 751.5, Other anomalies of intestine 562.10, Diverticulosis of colon (without mention of hemorrhage) CPT copyright 2013 [employer]. All rights reserved. The codes documented in this report are preliminary and upon remote coders review may be revised to meet current compliance requirements. Mesfin Almazan MD 05/21/2013 8:55 AM This report has been signed electronically. Number of Addenda: 0 Note Initiated On: 05/21/2013 8:27 AM [facility] 05/21/2013 8:27 AM CDT Narrative [facility] - 05/21/2013 8:56 AM CDT Procedure Note Mesfin Almazan MD - 05/21/2013 8:56 AM CDT Mesfin Almazan MD GI PROCEDURE ORDERAB LES [facility] * ENDOSCOPY, COLON, SCREENING (03/21/2013 12:41 PM POTATO PEELING MACHINE OPERATOR) Report Endoscopy POC _ Patient Name: Loraine Madrigal Procedure Date: 03/21/2013 12:41 PM Date of : 1935 Admit Type: Outpatient Age: 77 Gender: Female Attending MD: Mesfin Almazan MD _ Procedure: Colonoscopy Indications: Screening for colorectal malignant neoplasm Providers: Mesfin Almazan MD (Doctor), Allison Barahona RN, Aletha Escobar, Dental Sales Representative Referring MD: Juan Carlos Eisenberg MD (Referring MD), Shayy Grover MD (Referring MD) Medicines: Monitored Anesthesia Care Complications: No immediate complications. _ Procedure: Pre-Anesthesia Assessment: - The heart rate, respiratory rate, oxygen saturations, blood pressure, adequacy of pulmonary ventilation, and response to care were monitored throughout the procedure. - ASA Grade Assessment: II - A patient with mild systemic disease. - Airway Examination: Mallampati Class I (tonsillar pillars visualized). After I obtained informed consent, the scope was passed under direct vision. Throughout the procedure, the patient's blood pressure, pulse, and oxygen saturations were monitored continuously. The Colonoscope was introduced through the anus with the intention of advancing to the cecum. The scope was advanced to the hepatic flexure before the procedure was aborted. Medications were given. The colonoscopy was performed without difficulty. The patient tolerated the procedure well. The quality of the bowel preparation was unsatisfactory. Impression: - Preparation of the colon was unsatisfactory. - Stool in the descending colon, in the transverse colon and at the hepatic flexure. - Diverticulosis. Findings: A large amount of semi-liquid semi-solid stool was found in the descending colon, in the transverse colon and at the hepatic flexure, interfering with visualization. Lavage of the area was performed using a large amount, resulting in incomplete clearance with continued poor visualization. Diverticula were found in the colon. _ Recommendation: - Repeat colonoscopy at the next available appointment because the bowel preparation was suboptimal. Procedure Code(s): --- Professional --- 44400, 53, Colonoscopy, flexible, proximal to splenic flexure; diagnostic, with or without collection of specimen(s) by brushing or washing, with or without colon decompression (separate procedure) --- Technical --- 08714, 74, Colonoscopy, flexible, proximal to splenic flexure; diagnostic, with or without collection of specimen(s) by brushing or washing, with or without colon decompression (separate procedure) Diagnosis Code(s): --- Professional --- V76.51, Special screening for malignant neoplasms of colon 562.10, Diverticulosis of colon (without mention of hemorrhage) --- Technical --- V76.51, Special screening for malignant neoplasms of colon 562.10, Diverticulosis of colon (without mention of hemorrhage) CPT (R) 2012 [employer]. All Rights Reserved. The codes documented in this report are preliminary and upon remote coders review may be revised to meet current compliance requirements. Mesfin Almazan MD 03/21/2013 1:05 PM This report has been signed electronically. Number of Addenda: 0 Note Initiated On: 03/21/2013 12:41 PM [facility] 03/21/2013 12:4 1 PM POTATO PEELING MACHINE OPERATOR Narrative [facility] - 03/21/2013 1:07 PM POTATO PEELING MACHINE OPERATOR Procedure Note Mesfin Almazan MD - 03/21/2013 1:07 PM CST Mesfin Almazan MD GI PROCEDURE ORDERAB LES [facility] Care Teams Clinical Aide Relationship Specialty Start Date End Date Juan Carlos Eisenberg MD [address] [place] [address] PCP - General Internal Medicine 01/29/13
[2024-04-18 19:39] LABS: Add Urine Microscopic? YES; Appearance Urine Clear (Clear); Bacteria Urine None Seen /hpf; Bilirubin Urine Negative (Negative); Blood Urine Negative (Negative); Color Urine Yellow (Yellow); Glucose Urine UA 3+ mg/dL (Negative); Ketones Urine Trace mg/dL (Negative); Leukocyte Esterase Ur Negative LEU/UL (Negative); Need Manual Microscopic Reviewed; Nitrate Urine Negative (Negative); Non Pathogenic Casts 0-2; Protein Urine Trace mg/dL (Negative); Specific Grav Ur 1.027 (1.001-1.035); Squamous Epithelial Cell Urine Few /hpf (Few); WBC Urine 0-5 /hpf (0-3); pH Urine 5.5 (5.0-9.0)
== END 2024-04-18 11:27 | disposition home or self-care (01) ==
LOC: ANHGOSHLAB 11:28
PROVIDERS: PCP Internal Medicine; Visit Provider Internal Medicine
DX: R35.0 Frequency of micturition (principal)
CPT/HCPCS: 81001

== ENCOUNTER 2024-04-24 13:19 | Outpatient (CLI) | payer MEDICARE, OTHER, SELFPAY ==
--- OUTSIDE RECORDS SUMMARY | 2024-04-24 13:24 | XMS_ITS | Continuity of Care Document ---
Author Organization [facility] Address [address] [place] [address] [address] [place] [address] Phone Care Team Providers Care Manager Hair Name Role Phone Fowler OD, Andre Unavailable Unavailable Procedures Procedure Date Office/outpatient Visit, Est Office/outpatient Visit, Est Office/outpatient Visit, Est Advance Directives Directive Yes / No Effective Date File Name No Information Encounters Encounter Description Practice Location Reason(s) For Visit Diagnoses Date Provider Providers Copied on Encounter Office/outpat ient Visit, [facility], [address] [place] [address] [address], [place], [place], [id number], tel:[phone] [facility] No Information 0-200 7 Fowler OD Andre. [address], [place], [place], [facility], . tel:[phone] Office/outpat ient Visit, [facility], [address] [place] [address] [address], [place], [place], [id number], [place] tel:[phone] [facility] No Information Aug-3 0-200 7 Fowler OD Andre. [address], [place], [place], [facility], . tel:[phone] Office/outpat ient Visit, [facility], [address] [place] [address] [address], [place], [place], [id number], tel:[phone] [facility] No Information Aug-2 3-200 7 Fowler OD Andre. [address], [place], [address], [place]. tel:[phone] Family History Family Member Type Diagnosis Age At Onset No Information Payers Payer name Insurance type Covered constitution party ID Authorreneea tikurt(s) Medicare [facility] [id number] Mail Handlers Benefit Plan Commercial [id number] Social History Type Description Quantity Date Captured [...]
--- OUTSIDE RECORDS SUMMARY | 2024-04-24 13:24 | XMS_ITS | Clinical Summary ---
Author Organization [facility] Address [address] [place] [address] Care Team Providers Care Fish Receiver Name Role Phone Juan Carlos Eisenberg MD Primary Care Provider [phone] Allergies No known active allergies Medications dilTIAZem XR (CARDIZEM CD,DILACOR XR) 240 mg 24 hr capsule Take 1 capsule (240 mg total) by mouth daily Active telmisartan-hyd rochlorothiazid (MICARDIS HCT) 80-25 mg per tablet Take 1 tablet by mouth daily Active potassium chloride ER (KLOR-CON,K-DUR ) 10 mEq CR tablet Take 1 tablet/capsu le (10 mEq total) by mouth 2 (two) times a day Active guanFACINE (TENEX) 2 mg tablet Take 1 tablet (2 mg total) by mouth nightly Active metFORMIN (GLUCOPHAGE) 500 mg tablet Take 1 tablet (500 mg total) by mouth 2 (two) times a day with meals Active cholecalciferol (VITAMIN D-3) 1,000 unit Take 1 tablet/capsu le (1,000 Units total) by mouth daily Active vitamin E (AQUASOL E) 100 unit capsule Take 1 capsule (100 Units total) by mouth daily Active ascorbic acid (VITAMIN C) 1,000 mg tablet Take 1 tablet (1,000 mg total) by mouth daily Active fish oil-dha-epa 1,200-144-216 mg capsule Take by mouth. Active aspirin 81 mg tablet Take 1 tablet (81 mg total) by mouth daily Active calcium acetate (PHOSLO) 667 mg tablet Take 2 tablets (1,334 mg total) by mouth 3 (three) times a day with meals Active glucosam-chondr oitin-diet cb25 116-100 mg capsule Take by mouth. Active hydrALAZINE (APRESOLINE) 50 mg tabletIndicatio ns:hypertension Take 1 tablet (50 mg total) by mouth 3 (three) times a day Active bisacodyl EC (DULCOLAX EC) 5 mg EC tablet Take 2 tablets (10 mg total) by mouth 03/26/2013 Active omega 0-sih-xcr-fish oil 360-1,200 mg capsule,delayed release(DR/EC) Take by mouth Active lisinopriL (PRINIVIL,ZESTR IL) 40 mg tablet Take 1 tablet (40 mg total) by mouth Active simvastatin (ZOCOR) 20 mg tablet Take 1 tablet (20 mg total) by mouth Active verapamil ER (VERELAN) 120 mg 24 hr capsule Take 1 capsule (120 mg total) by mouth Active UNABLE TO FIND - ENTER DRUG NAME IN NOTES TO PHARMACY Med for low bone density. Once a week Active Crestor 20 mg tablet 03/08/2019 Active spironolactone (ALDACTONE) 25 mg tablet 03/08/2019 Active risedronate (ATELVIA) 35 mg tablet,delayed release (DR/EC) Take by mouth Active diltiazem LA (CARDIZEM LA) 180 mg 24 hr tablet Take 1 tablet (180 mg total) by mouth daily Active simvastatin (ZOCOR) 40 mg tablet Take 1 tablet (40 mg total) by mouth Active Jardiance 25 mg tablet 08/31/2021 Active Active Problems Problem Noted Date Diagnosed Date Renal artery stenosis 09/29/2021 Assessment & Plan (11/10/2023 1:57 PM CDT): Impression: Increase in velocities noted to bilateral renal arteries seen on renal duplex scan. Overall patient's blood pressure is controlled on 3 antihypertensive medications with no renal failure. Plan: No surgical interventions indicated at this time. -continue ongoing risk factor modifications. -patient to follow-up in 1 year for re-evaluation with renal duplex. Assessment & Plan (10/27/2022 9:57 AM CDT): Left renal artery with greater than 60% stenosis. Overall her blood pressure is controlled on her current regimen, no need for renal artery stenting at this time. Continue risk factor modification with ASA statin therapy. We will plan for follow-up in 1 year with repeat renal duplex. Assessment & Plan (09/29/2021 12:55 PM CDT): Calcific plaque of the left renal artery on CTA from [place]. No evidence of right renal artery stenosis. Renal duplex ordered for further evaluation. Continue ASA, statin therapy, and in good glucose control. Will follow-up in 1-2 weeks. Primary hypertension 09/29/2021 Assessment & Plan (11/10/2023 1:56 PM CDT): Impression: Chronic with elevated blood pressure. Patient remains asymptomatic. Plan: Recommend patient to monitor blood pressures at home and notify primary care provider for elevated blood pressures for further management. Assessment & Plan (10/27/2022 9:58 AM CDT): Stable continue diltiazem and hydralazine 50 mg. Assessment & Plan (09/29/2021 12:55 PM CDT): Continue lisinopril and diltiazem Type 2 diabetes mellitus wit hout complication, without long-term current use of insulin ([facility]) 09/29/2021 Assessment & Plan (11/10/2023 1:56 PM CDT): Impression: Chronic with good glucose control. Plan: Continue Jardiance Assessment & Plan (09/29/2021 12:56 PM CDT): Metformin Knee pain 10/26/2016 Breast lump in female 03/20/2015 Immunizations Immunization Administration Dates Next Due Influenza, Trivalent, High D ose, Split, Preservative Free, Intramuscular 10/31/2018,11/12/2017,12/11/2016,11/24,12/02/2014 Influenza, Unspecified 12/10/2013,11/29/2012, Pneumococcal Conjugate PCV 13 03/14/2016 Pneumococcal Polysaccharide PPV23 12/25/2018 ZOSTER Recombinant 02/23/2019,12/25/2018 Surgical History Surgery Date Site/Laterality Comments HYSTERECTOMY Medical History Medical History Date Comments Hypertension Family History Medical History Relation Name Comments Cancer Brother Stroke Father Arthritis Mother Hypertension Mother Cancer Sister Relation Name Status Comments Brother Father Mother Sister Social History Tobacco Use Types Packs/Day Years Used Date Smoking Tobacco: Former Cigarettes Q uit: 1968 Smokeless Tobacco: Former Alcohol Use Standard Drinks/Week Comments No 0 (1 standard drink = 0.6 oz pur e alcohol) Personal Safety Answer Date Recorded Getting School Help Needed Not on file 03/08 Comments Unknown Sex and Gender Information Value Date Recorded Sex Assigned at Not on file Legal Sex Female 10:45 AM CDT Gender Identity Not on file Sexual Orientation Not on file Occupation Industry Job Start Date Job End Date retired Not on file Not on file Not on file Obstetrics History Para Term AB IAB SAB Ectopic Multiple Livin g Live Births 4 3 3 Date Outcome GA Total Labor Labor/2nd/3rd Weight Sex Type Anes PTL Didi A1 A5 Name Clin Term Term Term Last Filed Vital Signs Vital Sign Reading Time Taken Comments Blood Pressure 173/71 11/08/2023 1:55 PM CDT Pulse 80 11/08/2023 1:55 PM CDT Temperature - - Respiratory Rate - - Oxygen Saturation - - Inhaled Oxygen Concentration - - Weight 76.7 kg (169 lb) 11/08/2023 1:55 PM CDT Height 172.7 cm (5' 8 ) 11/08/2023 1:55 PM CDT Body Mass Index 25.7 11/08/2023 1:55 PM CDT Plan of Treatment Health Maintenance Due Date Last Done Comments Albumin Creatinine Ratio, Urine 1935 Depression Screening 1935 Fall Risk Assessment 1935 Hemoglobin A1C 1935 eGFR 1935 Dilated Eye Exam 1935 Foot Exam 1935 Lipid Panel 1935 DTaP/Tdap/Td Vaccine (1 - Tdap) 1948 Hepatitis B Screening 11/15/1955 Well Visit 65+ 2002 Influenza Vaccine (#1) 2023 9, 11/12/2017, 12/11/2016, Additional history exists Pneumococcal vaccine 65+ Completed 12/25/2018, 11/2016 Zoster Vaccine Completed 02/23/2019, 12/25/2018 Insurance MEDICARE [facility] PPO [facility] HMO/PPO Address: [facility] [id number] [place] [address] [employer] MEDICARE MEDICARE [employer] Care Teams Fish Receiver Relationship Specialty Start Date End Date Juan Carlos Eisenberg MD [address] [place] [address] PCP - General 09/19/16
--- OUTSIDE RECORDS SUMMARY | 2024-04-24 13:24 | XMS_ITS | Clinical Summary ---
Author Organization [facility] Address [address] [place] [address] Care Team Providers Care Elect Equip Maint Eng Name Role Phone Juan Carlos Eisenberg MD Primary Care Provider [phone] Source Comments [facility],non-owned Affiliates and Associated Physician Practices is amultiple site organization consisting of ambulatory clinics and hospital sitesin [place], [place], [place] and [place]. This disclosure is being madepursuant to the Care Everywhere program and may not contain all information available regarding this patient. Last updated 17.[facility] Allergies No known active allergies Medications * [...] 400 Units by mouth once daily. Active [place]-3 Fatty Acids (FISH OIL) 1200 MG CAPS [...] - Respiratory Rate 20 03/21/2013 12:21 PM ALUMINUM CAN COLLECTOR Oxygen Saturation 96% 05/21/2013 9:24 AM CDT [...] age to complete this topic Care Teams Elect Equip Maint Eng Relationship Specialty Start Date End Date Juan Carlos Eisenberg MD [address] [place] [address] PCP - General Internal Medicine 01/29/13
--- OUTSIDE RECORDS SUMMARY | 2024-04-24 13:24 | XMS_ITS | Patient Health Summary ---
Author Organization [facility] Address [address] [place] [address] Care Team Providers Care Brake Linings Coater Name Role Phone Juan Carlos Eisenberg MD Primary Care Provider [phone] Note from [facility],non-owned Affiliates and Associated Physician Practices is amultiple site organization consisting of ambulatory clinics and hospital sitesin [place], [place] and [place]. This disclosure is being madepursuant to the Care Everywhere program and may not contain all information available regarding this patient. Last updated 17.[facility] Allergies No known active allergies Medications * [...] 400 Units by mouth once daily. * [place]-3 Fatty Acids (FISH OIL) 1200 MG CAPS Take by mouth. * potassium chloride (KLOR-CON M;K-DUR) 10 MEQ tablet Take 10 mEq by mouth once daily. * calcium carbonate 650 MG tablet Take 650 mg by mouth once daily. * Yjcgxeprywt-Nbdddwvoq-Fzy C-Mn (GLUCOSAMINE CHONDR 500 COMPLEX) CAPS Take [...] - Respiratory Rate 20 03/21/2013 12:21 PM CARE ADVOCATE Oxygen Saturation 96% 05/21/2013 9:24 AM CDT [...] MD (Doctor), Itzel Soto RN, Joana Doran, Facsimile Machine Operator Referring MD: Juan Carlos Eisenberg MD (Referring [...] colon cancer. Procedure Code(s): --- Professional --- 00419, Colonoscopy, flexible, proximal to splenic flexure; diagnostic, with or without collection of specimen(s) by brushing or washing, with or without colon decompression (separate procedure) --- Technical --- 72563, Colonoscopy, flexible, proximal to splenic flexure; diagnostic, [...] (without mention of hemorrhage) CPT copyright 2013 [employer] [place] [employer]. All rights reserved. The codes documented in this report are preliminary and upon supervisor production managing review may be revised to meet current compliance requirements. Mesfin Almazan MD 05/21/2013 8:55 AM This report has been signed electronically. Number of Addenda: 0 Note Initiated On: 05/21/2013 8:27 AM [facility] 05/21/2013 8:27 AM CDT Narrative [facility] - 05/21/2013 8:56 AM CDT Procedure Note Mesfin Almazan MD - 05/21/2013 8:56 AM CDT Mesfin Almazan MD GI PROCEDURE ORDERAB LES [facility] * ENDOSCOPY, COLON, SCREENING (03/21/2013 12:41 PM CARE ADVOCATE) Report Endoscopy POC _ Patient Name: Loraine Madrigal Procedure Date: 03/21/2013 12:41 PM Date of : 1935 Admit Type: Outpatient Age: 77 Gender: Female Attending MD: Mesfin Almazan MD _ Procedure: Colonoscopy Indications: Screening for colorectal malignant neoplasm Providers: Mesfin Almazan MD (Doctor), Allison Barahona RN, Aletha Escobar, Facsimile Machine Operator Referring MD: Juan Carlos Eisenberg MD (Referring [...] was suboptimal. Procedure Code(s): --- Professional --- 94677, 53, Colonoscopy, flexible, proximal to splenic flexure; diagnostic, with or without collection of specimen(s) by brushing or washing, with or without colon decompression (separate procedure) --- Technical --- 82958, 74, Colonoscopy, flexible, proximal to splenic flexure; [...] (without mention of hemorrhage) CPT (R) 2012 [employer] [place] [employer]. All Rights Reserved. The codes documented in this report are preliminary and upon supervisor production managing review may be revised to meet current compliance requirements. Mesfin Almazan MD 03/21/2013 1:05 PM This report has been signed electronically. Number of Addenda: 0 Note Initiated On: 03/21/2013 12:41 PM [facility] 03/21/2013 12:4 1 PM CARE ADVOCATE Narrative [facility] - 03/21/2013 1:07 PM CARE ADVOCATE Procedure Note Mesfin Almazan MD - 03/21/2013 1:07 PM CST Mesfin Almazan MD GI PROCEDURE ORDERAB LES [facility] Care Teams Brake Linings Coater Relationship Specialty Start Date End Date Juan Carlos Eisenberg MD [address] [place] [address] PCP - General Internal Medicine 01/29/13
--- OUTSIDE RECORDS SUMMARY | 2024-04-24 13:24 | XMS_ITS | Clinical Summary ---
Author Organization [facility] Address [address] [place] [address] [address] Phone Care Team Providers Care Heel Seater Name Role Phone Juan Carlos Eisenberg MD [...] MD Referring Provider: Shayy Grover MD [address] [facility] [address] [place] [address] Other: Problem Noted Date Diagnosed Date Breast lump in female 03/20/2015 Social History Tobacco Use Types Packs/Day Years Used Date Smoking Tobacco: Former Cigarettes Q uit: 03/30/1985 Smokeless Tobacco: Never Comments No Sex and Gender Information Value Date Recorded Sex Assigned at Not on file Legal Sex Female 9:32 AM BOX CAR LOADER Gender Identity Not on file Sexual Orientation Not on file Last Filed Vital Signs Vital Sign Reading Time Taken Comments Blood Pressure 178/94 03/30/2015 11:06 AM BOX CAR LOADER Pulse 85 03/30/2015 11:06 AM BOX CAR LOADER Temperature - - Respiratory Rate - - Oxygen Saturation - - Inhaled Oxygen Concentration - - Weight 83 kg (183 lb) 03/30/2015 11:06 AM BOX CAR LOADER Height 175.3 cm (5' 9 ) 03/30/2015 11:06 AM BOX CAR LOADER Body Mass Index 27.02 03/30/2015 11:06 AM BOX CAR LOADER Plan of Treatment Health Maintenance Due Date Last Done Comments DTAP/TDAP/TD VACCINES (1 - Tdap) 1954 PNEUMOCOCCAL VACCINE 65+ YEARS (1 of 1 - PCV) 11/14/18 88 ZOSTER VACCINE (1 of 2) 11/15/1987 OSTEOPOROSIS SCREENING 2002 RSV VACCINE (60+ or ) (1 - 1-dose 75+ series) 2012 INFLUENZA VACCINE (#1) 2023 Insurance MEDICARE PART A AND B [facility] Address: [facility] [address] [place] [address] [employer] Care Teams Heel Seater Relationship Specialty Start Date End Date Juan Carlos Eisenberg MD PCP - General Internal Medicine 03/30/15
--- OUTSIDE RECORDS SUMMARY | 2024-04-24 13:24 | XMS_ITS | Referral Summary ---
Author Organization [facility] Address [address] [place] [address] Care Team Providers Care International Exchange Coordinator Name Role Phone Juan Carlos Eisenberg MD Primary Care Provider [phone] Allergies No known active allergies Medications dilTIAZem [...] mg total) by mouth 03/26/2013 Active omega 6-krd-afo-fish oil 360-1,200 mg capsule,delayed release(DR/EC) Take by [...] the left renal artery on CTA from [place]. No evidence of right renal artery stenosis. [...] complication, without long-term current use of insulin ([facility]) 09/29/2021 Assessment & Plan (11/10/2023 1:56 PM [...] Pneumococcal Polysaccharide PPV23 12/25/2018 ZOSTER Recombinant 02/23/2019,12/25/2018 Social History Tobacco Use Types Packs/Day Years [...] file Not on file Not on file Last Filed Vital Signs [...] 11/08/2023 1:55 PM CDT Plan of Treatment Not on file Insurance [facility]ERS MEDICARE MEDICARE MAIL HANDLERS Care Teams International Exchange Coordinator Relationship Specialty Start Date End Date Juan Carlos Eisenberg MD [address] [facility] [address] [facility] [address] [place] [address] PCP - General 09/19/16
--- OUTSIDE RECORDS SUMMARY | 2024-04-24 13:24 | XMS_ITS | Referral Summary ---
Author Organization [facility] Address [address] [place] [address] Care Team Providers Care Process Worker Name Role Phone Juan Carlos Eisenberg MD Primary Care Provider [phone] Source Comments [facility],non-owned Affiliates and Associated Physician Practices is amultiple site organization consisting of ambulatory clinics and hospital sitesin [place], [place], [place] and [place]. This disclosure is being madepursuant to the Care Everywhere program and may not contain all information available regarding this patient. Last updated 17.[facility] Allergies No known active allergies Medications * [...] 400 Units by mouth once daily. Active [place]-3 Fatty Acids (FISH OIL) 1200 MG CAPS [...] - Respiratory Rate 20 03/21/2013 12:21 PM LEASING REPRESENTATIVE Oxygen Saturation 96% 05/21/2013 9:24 AM CDT Inhaled Oxygen Concentration - - Weight 86.2 kg (190 lb) 05/21/2013 7:36 AM CDT Height 175.3 cm (5' 9 ) 05/21/2013 7:36 AM CDT Body Mass Index 28.06 05/21/2013 7:36 AM CDT Plan of Treatment Not on file Care Teams Process Worker Relationship Specialty Start Date End Date Juan Carlos Eisenberg MD [address] [place] [address] PCP - General Internal Medicine 01/29/13
[2024-04-24 21:04] LABS: Anion Gap 6 mmol/L (4-12); Blood Urea Nitrogen 20 mg/dL (7-17); Calcium 10.1 mg/dL (8.4-10.2); Carbon Dioxide 31 mmol/L (22-30); Chloride 98 mmol/L (98-107); Estimated Glomerular Filt Rate 47; Glucose 115 mg/dL (65-110); Potassium 4.3 mmol/L (3.4-5.0); Sodium 135 mmol/L (137-145)
== END 2024-04-24 13:20 | disposition home or self-care (01) ==
LOC: ANHGOSHLAB 13:21
PROVIDERS: PCP Internal Medicine; Visit Provider Internal Medicine
DX: R71.8 Other abnormality of red blood cells (principal)
CPT/HCPCS: 36415; 80048

== ENCOUNTER 2024-04-24 13:54 | Outpatient (CLI) | payer MEDICARE, OTHER, SELFPAY ==
--- NOTE | ~2024-04-24 | CT_ITS ---
EXAMINATION: CT abdomen pelvis wo/w con DATE: 04/24/2024 15:07 INDICATION: Other abnormality of red blood cells. TECHNIQUE: Computed tomography (CT) of the abdomen and pelvis was performed without and with intraven ous contrast using a total of 130 mL Omnipaque-350 intravenous contrast with a double-bolus technique for simultaneous opacification of the renal parenchyma and renal collecting system. Automated exposu re control and iterative reconstruction technique were employed. The dose-length product was 678.77 m Gy-cm. COMPARISON: CT abdomen 08/28/2021 FINDINGS: The visualized portions of the lung bases demonstrate mild scarring in paraspinal right lower lobe. T here is mild atelectasis in left lower lobe. Cardiomegaly is noted. No pericardial effusion. There ar e cysts in the liver measuring up to 4.3 cm. There is chronic biliary duct dilatation in left hepatic lobe. The gallbladder is contracted. The spleen, pancreas, and adrenal glands are normal. There are cysts in the kidneys measuring up to 3.0 cm on the right. There is no urolithiasis. There is cortical thinning of right kidney. The ureters are well opacified and are normal. The bladder is not well dis tended. There is diverticulosis of the colon without evidence of diverticulitis. There are no dilated loops of bowel. The appendix is not visualized. There are no pathologically enlarged lymph nodes. Th ere is no free intraperitoneal fluid. There is severe thoracic and lumbar spondylosis. IMPRESSION: 1. Cardiomegaly. Reviewed, dictated and finalized at location A. RVISOR TUNNEL HEADING IMPRESSION: 1. Cardiomegaly.
[2024-04-24 14:24] LABS: Estimated Glomerular Filt Rate 36
== END 2024-04-24 13:55 | disposition home or self-care (01) ==
LOC: MICIMG 13:54
PROVIDERS: PCP Internal Medicine; Visit Provider Internal Medicine
DX: R71.8 Other abnormality of red blood cells (principal); M54.9 Dorsalgia, unspecified; I51.7 Cardiomegaly
CPT/HCPCS: 74178; Q9967

== ENCOUNTER 2024-04-26 11:30 | Outpatient (CLI) | payer MEDICARE, OTHER, SELFPAY ==
--- NOTE | ~2024-04-26 | XR_ITS ---
EXAMINATION: XR lumbar spine min 4V DATE: 04/26/2024 11:58 INDICATION: Low back pain, unspecified. TECHNIQUE: 5 views of lumbar spine were obtained. COMPARISON: None. FINDINGS: There is 5 degrees levocurvature of lumbar spine. There is 5 mm retrolisthesis of T12 on L1 and L1 on L2. Vertebral body heights are normal. There is severely decreased disc height at T12-L1, mildly decreased disc at L1-L2 and L3-L4, and severely decreased disc at L4-L5 and L5-S1. There is mu ltilevel facet joint osteoarthritis, severe in lower lumbar spine. IMPRESSION: 1. Severe lumbar spondylosis. Reviewed, dictated and finalized at location A. HOLOGIST EDUCATIONAL
--- NOTE | ~2024-04-26 | XR_ITS ---
EXAMINATION: XR hip BI 2V w AP pelvis DATE: 04/26/2024 11:58 INDICATION: Right hip pain, chronic. TECHNIQUE: An anteroposterior view of the pelvis and 2 views of each hip were obtained. COMPARISON: None. FINDINGS: There is lumbar levocurvature. No fracture. There is severe lumbar spondylosis. There is mo derate osteoarthritis of the hips. IMPRESSION: 1. Moderate osteoarthritis of the hips. Reviewed, dictated and finalized at location A. ITION TEACHER
--- OUTSIDE RECORDS SUMMARY | 2024-04-26 11:57 | XMS_ITS | Continuity of Care Document ---
Author Organization [facility] Address [address] [place] [address] [address] [place] [address] Phone Care Team Providers Care Head Of Measurement & Insights Name Role Phone Fowler OD, Andre Unavailable Unavailable Procedures Procedure Date Office/outpatient Visit, Est Office/outpatient Visit, Est Office/outpatient Visit, Est Advance Directives Directive Yes / No Effective Date File Name No Information Encounters Encounter Description Practice Location Reason(s) For Visit Diagnoses Date Provider Providers Copied on Encounter Office/outpat ient Visit, [facility], [address] [place] [address] [address], [place], [place], [id number], tel:[phone] [facility] No Information 0-200 7 Fowler OD Andre. [address], [place], [place], [facility], . tel:[phone] Office/outpat ient Visit, [facility], [address] [place] [address] [address], [place], [place], [id number], [place] tel:[phone] [facility] No Information Aug-3 0-200 7 Fowler OD Andre. [address], [place], [place], [facility], . tel:[phone] Office/outpat ient Visit, [facility], [address] [place] [address] [address], [place], [place], [id number], tel:[phone] [facility] No Information Aug-2 3-200 7 Fowler OD Andre. [address] , [address], [place], [address], [place]. tel:[phone] Family History Family Member Type Diagnosis Age At Onset No Information Payers Payer name Insurance type Covered constitution party ID Authorreneea tikurt(s) Medicare [facility] [id number] Mail Handlers Benefit Plan Commercial [id number] Social History Type Description Quantity Date Captured [...]
--- OUTSIDE RECORDS SUMMARY | 2024-04-26 11:57 | XMS_ITS | Clinical Summary ---
Author Organization [facility] Address [address] [place] [address] Care Team Providers Care Clinical Dermatologist Name Role Phone Juan Carlos Eisenberg MD Primary Care Provider [phone] Source Comments [facility],non-owned Affiliates and Associated Physician Practices is amultiple site organization consisting of ambulatory clinics and hospital sitesin [place], [place], [place] and [place]. This disclosure is being madepursuant to the Care Everywhere program and may not contain all information available regarding this patient. Last updated 17.[facility] Allergies No known active allergies Medications * [...] 400 Units by mouth once daily. Active [place]-3 Fatty Acids (FISH OIL) 1200 MG CAPS [...] - Respiratory Rate 20 03/21/2013 12:21 PM CIVIL ENGINEERING PROFESSOR Oxygen Saturation 96% 05/21/2013 9:24 AM CDT [...] age to complete this topic Care Teams Clinical Dermatologist Relationship Specialty Start Date End Date Juan Carlos Eisenberg MD [address] [place] [address] PCP - General Internal Medicine 01/29/13
--- OUTSIDE RECORDS SUMMARY | 2024-04-26 11:57 | XMS_ITS | Referral Summary ---
Author Organization [facility] Address [address] [place] [address] Care Team Providers Care Polisher Aluminum Name Role Phone Juan Carlos Eisenberg MD Primary Care Provider [phone] Allergies No known active allergies Medications dilTIAZem [...] mg total) by mouth 03/26/2013 Active omega 5-ijr-bwg-fish oil 360-1,200 mg capsule,delayed release(DR/EC) Take by [...] the left renal artery on CTA from [place]. No evidence of right renal artery stenosis. [...] complication, without long-term current use of insulin ([facility]) 09/29/2021 Assessment & Plan (11/10/2023 1:56 PM [...] of Treatment Not on file Insurance [facility] MEDICARE MEDICARE MAIL HANDLERS Care Teams Polisher Aluminum Relationship Specialty Start Date End Date Juan Carlos Eisenberg MD [address] [facility] [address] [facility] [address] [place] [address] PCP - General 09/19/16
--- OUTSIDE RECORDS SUMMARY | 2024-04-26 11:57 | XMS_ITS | Patient Health Summary ---
Author Organization [facility] Address [address] [place] [address] Care Team Providers Care Workplace Relations Adviser Name Role Phone Juan Carlos Eisenberg MD Primary Care Provider [phone] Note from [facility],non-owned Affiliates and Associated Physician Practices is amultiple site organization consisting of ambulatory clinics and hospital sitesin [place], [place], [place] and [place]. This disclosure is being madepursuant to the Care Everywhere program and may not contain all information available regarding this patient. Last updated 17.[facility] Allergies No known active allergies Medications [...] 400 Units by mouth once daily. * [place]-3 Fatty Acids (FISH OIL) 1200 MG CAPS Take by mouth. * potassium chloride (KLOR-CON M;K-DUR) 10 MEQ tablet Take 10 mEq by mouth once daily. * calcium carbonate 650 MG tablet Take 650 mg by mouth once daily. * Woozwjbwroq-Uhsnfpjmr-Sfo C-Mn (GLUCOSAMINE CHONDR 500 COMPLEX) CAPS Take [...] - Respiratory Rate 20 03/21/2013 12:21 PM INFORMATION ARCHITECT Oxygen Saturation 96% 05/21/2013 9:24 AM CDT [...] MD (Doctor), Itzel Soto RN, Joana Doran, Draft Roller Picker Referring MD: Juan Carlos Eisenberg MD (Referring [...] colon cancer. Procedure Code(s): --- Professional --- 70263, Colonoscopy, flexible, proximal to splenic flexure; diagnostic, with or without collection of specimen(s) by brushing or washing, with or without colon decompression (separate procedure) --- Technical --- 19731, Colonoscopy, flexible, proximal to splenic flexure; diagnostic, [...] (without mention of hemorrhage) CPT copyright 2013 [employer]. All rights reserved. The codes documented in this report are preliminary and upon prepper review may be revised to meet current compliance requirements. Mesfin Almazan MD 05/21/2013 8:55 AM This report has been signed electronically. Number of Addenda: 0 Note Initiated On: 05/21/2013 8:27 AM [facility] 05/21/2013 8:27 AM CDT Narrative [facility] - 05/21/2013 8:56 AM CDT Procedure Note Mesfin Almazan MD - 05/21/2013 8:56 AM CDT Mesfin Almazan MD GI PROCEDURE ORDERAB LES [facility] * ENDOSCOPY, COLON, SCREENING (03/21/2013 12:41 PM INFORMATION ARCHITECT) Report Endoscopy POC _ Patient Name: Loraine Madrigal Procedure Date: 03/21/2013 12:41 PM Date of : 1935 Admit Type: Outpatient Age: 77 Gender: Female Attending MD: Mesfin Almazan MD _ Procedure: Colonoscopy Indications: Screening for colorectal malignant neoplasm Providers: Mesfin Almazna MD (Doctor), Allison Barahona RN, Aletha Escobar, Draft Roller Picker Referring MD: Juan Carlos Eisenberg MD (Referring [...] was suboptimal. Procedure Code(s): --- Professional --- 20137, 53, Colonoscopy, flexible, proximal to splenic flexure; diagnostic, with or without collection of specimen(s) by brushing or washing, with or without colon decompression (separate procedure) --- Technical --- 48997, 74, Colonoscopy, flexible, proximal to splenic flexure; [...] (without mention of hemorrhage) CPT (R) 2012 [employer]. All Rights Reserved. The codes documented in this report are preliminary and upon prepper review may be revised to meet current compliance requirements. Mesfin Almazan MD 03/21/2013 1:05 PM This report has been signed electronically. Number of Addenda: 0 Note Initiated On: 03/21/2013 12:41 PM [facility] 03/21/2013 12:4 1 PM INFORMATION ARCHITECT Narrative [facility] - 03/21/2013 1:07 PM INFORMATION ARCHITECT Procedure Note Mesfin Almazan MD - 03/21/2013 1:07 PM CST Mesfin Almazan MD GI PROCEDURE ORDERAB LES [facility] Care Teams Workplace Relations Adviser Relationship Specialty Start Date End Date Juan Carlos Eisenberg MD [address] [place] [address] PCP - General Internal Medicine 01/29/13
--- OUTSIDE RECORDS SUMMARY | 2024-04-26 11:57 | XMS_ITS | Clinical Summary ---
Author Organization [facility] Address [address] [place] [address] Care Team Providers Care Exchange Administrator Name Role Phone Juan Carlos Eisenberg MD Primary Care Provider [phone] Allergies No known active allergies Medications dilTIAZem [...] mg total) by mouth 03/26/2013 Active omega 5-bso-sdw-fish oil 360-1,200 mg capsule,delayed release(DR/EC) Take by [...] the left renal artery on CTA from [place]. No evidence of right renal artery stenosis. [...] complication, without long-term current use of insulin ([facility]) 09/29/2021 Assessment & Plan (11/10/2023 1:56 PM [...] Zoster Vaccine Completed 02/23/2019, 12/25/2018 Insurance MEDICARE [facility] Address: [facility] [address] [place] [address] [facility] PPO MAIL [employer] MEDICARE MEDICARE [employer]IL [employer] Care Teams Exchange Administrator Relationship Specialty Start Date End Date Juan Carlos Eisenberg MD [address] [place] [address] PCP - General 09/19/16
--- OUTSIDE RECORDS SUMMARY | 2024-04-26 11:57 | XMS_ITS | Clinical Summary ---
Author Organization [facility] [place] Address [address] [place] [address] [address] Phone Care Team Providers Care Insemination Worker Name Role Phone Juan Carlos Eisenberg [...] MD Referring Provider: Shayy Grover MD [address] [facility] [address] [place] [address] Other: Problem Noted Date Diagnosed Date Breast lump in female 03/20/2015 Social History Tobacco Use Types Packs/Day Years Used Date Smoking Tobacco: Former Cigarettes Q uit: 03/30/1985 Smokeless Tobacco: Never Comments No Sex and Gender Information Value Date Recorded Sex Assigned at Not on file Legal Sex Female 9:32 AM GIFT WRAPPER Gender Identity Not on file Sexual Orientation Not on file Last Filed Vital Signs Vital Sign Reading Time Taken Comments Blood Pressure 178/94 03/30/2015 11:06 AM GIFT WRAPPER Pulse 85 03/30/2015 11:06 AM GIFT WRAPPER Temperature - - Respiratory Rate - - Oxygen Saturation - - Inhaled Oxygen Concentration - - Weight 83 kg (183 lb) 03/30/2015 11:06 AM GIFT WRAPPER Height 175.3 cm (5' 9 ) 03/30/2015 11:06 AM GIFT WRAPPER Body Mass Index 27.02 03/30/2015 11:06 AM GIFT WRAPPER Plan of Treatment Health Maintenance Due Date Last Done Comments DTAP/TDAP/TD VACCINES (1 - Tdap) 1954 PNEUMOCOCCAL VACCINE 65+ YEARS (1 of 1 - PCV) 11/14/18 88 ZOSTER VACCINE (1 of 2) 11/15/1987 OSTEOPOROSIS SCREENING 2002 RSV VACCINE (60+ or ) (1 - 1-dose 75+ series) 2012 INFLUENZA VACCINE (#1) 2023 Insurance MEDICARE PART A AND B [employer] Care Teams Insemination Worker Relationship Specialty Start Date End Date Juan Carlos Eisenberg MD PCP - General Internal Medicine 03/30/15
--- OUTSIDE RECORDS SUMMARY | 2024-04-26 11:57 | XMS_ITS | Referral Summary ---
Author Organization [facility] Address [address] [place] [address] Care Team Providers Care Outsole Cutter Machine Name Role Phone Juan Carlos Eisenberg MD Primary Care Provider Source Comments [facility] [employer],non-owned Affiliates and Associated Physician Practices is amultiple site organization consisting of ambulatory clinics and hospital sitesin [place], [place], [place] and [place]. This disclosure is being madepursuant to the Care Everywhere program and may not contain all information available regarding this patient. Last updated 17.[facility] [employer] Allergies No known active allergies Medications * [...] 400 Units by mouth once daily. Active [place]-3 Fatty Acids (FISH OIL) 1200 MG CAPS [...] - Respiratory Rate 20 03/21/2013 12:21 PM OPERATIONAL METEOROLOGIST Oxygen Saturation 96% 05/21/2013 9:24 AM CDT Inhaled Oxygen Concentration - - Weight 86.2 kg (190 lb) 05/21/2013 7:36 AM CDT Height 175.3 cm (5' 9 ) 05/21/2013 7:36 AM CDT Body Mass Index 28.06 05/21/2013 7:36 AM CDT Plan of Treatment Not on file Care Teams Outsole Cutter Machine Relationship Specialty Start Date End Date Juan Carlos Eisenberg MD [address] [place] [address] PCP - General Internal Medicine 01/29/13
== END 2024-04-26 11:31 | disposition home or self-care (01) ==
PROVIDERS: PCP Internal Medicine; Visit Provider Internal Medicine
DX: M25.551 Pain in right hip (principal); M25.552 Pain in left hip; M54.50 Low back pain, unspecified; M16.0 Bilateral primary osteoarthritis of hip; M43.06 Spondylolysis, lumbar region
CPT/HCPCS: 72110; 73521

== ENCOUNTER 2024-05-06 09:02 | Outpatient (CLI) | payer MEDICARE, OTHER, SELFPAY | END 2024-05-06 09:03 | disposition home or self-care (01) | LOC: ANHAUDIO 09:03 | PROVIDERS: PCP Internal Medicine; Visit Provider Internal Medicine | DX: H90.3 Sensorineural hearing loss, bilateral (principal) | CPT/HCPCS: 92557; 92567 ==

== ENCOUNTER 2024-07-10 10:11 | Outpatient (CLI) | payer MEDICARE, OTHER, SELFPAY ==
--- NOTE | ~2024-07-10 | MR_ITS ---
MRI of the brain Clinical History: Memory loss Technique: Axial and sagittal T1-weighted images were acquired. These were followed by axial T2-weigh tatiana, diffusion weighted, gradient, and FLAIR images. Findings: There is no acute infarct, intracranial hemorrhage or mass lesion. There is moderate to adv anced chronic white matter disease, most likely chronic microvascular ischemic change with additional involvement in the franc[place]. Ventricles and subarachnoid spaces are unremarkable. Orbits are unremarkable. Paranasal sinuses and m astoid air cells are clear. Major intracranial flow voids are intact. Sagittal midline structures are intact. IMPRESSION: No acute intracranial abnormality. Moderate to advanced chronic microvascular ischemic change. Reviewed, dictated and finalized at location M.
== END 2024-07-10 10:12 | disposition home or self-care (01) ==
LOC: MICIMG 10:12
PROVIDERS: PCP Internal Medicine; Visit Provider Internal Medicine
DX: R41.89 Other symptoms and signs involving cognitive functions and awareness (principal); R41.3 Other amnesia
CPT/HCPCS: 70551

== ENCOUNTER 2024-07-10 11:40 | Outpatient (CLI) | payer MEDICARE, OTHER, SELFPAY ==
--- OUTSIDE RECORDS SUMMARY | 2024-07-10 12:17 | XMS_ITS | Clinical Summary ---
Author Organization [facility] [place] Address [address] [place] [address] [address] Phone Care Team Providers Care Sql Etl Developer Name Role Phone Juan Carlos Eisenberg MD [...] MD Referring Provider: Shayy Grover MD [address] [facility] [address] [place] [address] Other: Problem Noted Date Diagnosed Date Breast lump in female 03/20/2015 Social History Tobacco Use Types Packs/Day Years Used Date Smoking Tobacco: Former Cigarettes Q uit: 03/30/1985 Smokeless Tobacco: Never Comments No Sex and Gender Information Value Date Recorded Sex Assigned at Not on file Legal Sex Female 9:32 AM CURTAIN FRAMER Gender Identity Not on file Sexual Orientation Not on file Last Filed Vital Signs Vital Sign Reading Time Taken Comments Blood Pressure 178/94 03/30/2015 11:06 AM CURTAIN FRAMER Pulse 85 03/30/2015 11:06 AM CURTAIN FRAMER Temperature - - Respiratory Rate - - Oxygen Saturation - - Inhaled Oxygen Concentration - - Weight 83 kg (183 lb) 03/30/2015 11:06 AM CURTAIN FRAMER Height 175.3 cm (5' 9 ) 03/30/2015 11:06 AM CURTAIN FRAMER Body Mass Index 27.02 03/30/2015 11:06 AM CURTAIN FRAMER Plan of Treatment Health Maintenance Due Date Last Done Comments DTAP/TDAP/TD VACCINES (1 - Tdap) 1954 PNEUMOCOCCAL VACCINE 50+ YEARS (1 of 1 - PCV) 11/14/18 88 ZOSTER VACCINE (1 of 2) 11/15/1987 OSTEOPOROSIS SCREENING 2002 RSV VACCINE (60+ or ) (1 - 1-dose 75+ series) 2012 INFLUENZA VACCINE (#1) 2023 Insurance MEDICARE PART A AND B [employer] CHOICE POS II Care Teams Sql Etl Developer Relationship Specialty Start Date End Date Juan Carlos Eisenberg MD PCP - General Internal Medicine 03/30/15
--- OUTSIDE RECORDS SUMMARY | 2024-07-10 12:17 | XMS_ITS | Referral Summary ---
Author Organization [facility] Address [address] [place] [address] Care Team Providers Care Associate Project Manager Name Role Phone Juan Carlos Eisenberg MD Primary Care Provider [phone] Allergies No known active allergies Medications dilTIAZem [...] mg total) by mouth 03/26/2013 Active omega 6-hpo-qvl-fish oil 360-1,200 mg capsule,delayed release(DR/EC) Take by [...] the left renal artery on CTA from [place]. No evidence of right renal artery stenosis. [...] complication, without long-term current use of insulin 09/29/2021 Assessment & Plan (11/10/2023 1:56 PM [...] of Treatment Not on file Insurance MEDICARE [facility] MAIL [employer]LERS MEDICARE MEDICARE MAIL [employer]LERS Care Teams Associate Project Manager Relationship Specialty Start Date End Date Juan Carlos Eisenberg MD [address] [facility] [address] [facility] [address] [place] [address] PCP - General 09/19/16
--- OUTSIDE RECORDS SUMMARY | 2024-07-10 12:17 | XMS_ITS | Clinical Summary ---
Author Organization [facility] Address [address] [place] [address] Care Team Providers Care Language Teacher Name Role Phone Juan Carlos Eisenberg MD Primary Care Provider [phone] Allergies No known active allergies Medications dilTIAZem [...] mg total) by mouth 03/26/2013 Active omega 2-guh-btg-fish oil 360-1,200 mg capsule,delayed release(DR/EC) Take by [...] the left renal artery on CTA from [place]. No evidence of right renal artery stenosis. [...] Zoster Vaccine Completed 02/23/2019, 12/25/2018 Insurance MEDICARE [facility] PPO MAIL HANDLERS MEDICARE MEDICARE MAIL HANDLERS Care Teams Language Teacher Relationship Specialty Start Date End Date Juan Carlos Eisenberg MD [address] [place] [address] PCP - General 09/19/16
--- OUTSIDE RECORDS SUMMARY | 2024-07-10 12:17 | XMS_ITS | Clinical Summary ---
Author Organization [facility] Address [address] [place] [address] Care Team Providers Care Hearing Healthcare Practitioner Name Role Phone Juan Carlos Eisenberg MD Primary Care Provider [phone] Source Comments [facility],non-owned Affiliates and Associated Physician Practices is amultiple site organization consisting of ambulatory clinics and hospital sitesin [place], [place], [place] and [place]. This disclosure is being madepursuant to the Care Everywhere program and may not contain all information available regarding this patient. Last updated 17.[facility] Allergies No known active allergies Medications * Be aware that medications may not be up to date on this document. Alwaysverify current medications with the patient. lisinopril (PRINIVIL; ZESTRIL) 40 MG tablet Take 40 mg by mouth once daily. Active telmisartan-hydr ochlorothiazide (MICARDIS HCT) 80-25 MG Take 1 Tab by mouth once daily. Active verapamil SR 24hr (VERELAN) 120 MG capsule Take 120 mg by mouth once daily. Active vitamin E (TOCOPHERYL) 400 UNIT capsule Take 400 Units by mouth once daily. Active [place]-3 Fatty Acids (FISH OIL) 1200 MG CAPS Take by mouth. Active potassium chloride (KLOR-CON M;K-DUR) 10 MEQ tablet Take 10 mEq by mouth once daily. Active calcium carbonate 650 MG tablet Take 650 mg by mouth once daily. Active Glucosamine-Laz droit-Vit C-Mn (GLUCOSAMINE CHONDR 500 COMPLEX) CAPS Take by mouth. Active aspirin EC (ECOTRIN) 81 MG tablet Take 81 mg by mouth once daily. Active simvastatin (ZOCOR) 20 MG tablet Take 20 mg by mouth at bedtime. Active Other Med for low bone density. Once a week Active bisACODYL EC (DULCOLAX) 5 MG tabletIndication s:Screen for colon cancer Take 2 Tabs by mouth once as needed for 1 dose. 2 Tab 0 03/26/2013 Active Social History Tobacco Use Types Packs/Day Years Used Date Smoking Tobacco: Never Smokeless Tobacco: Never Alcohol Use Standard Drinks/Week Comments No 0 (1 standard drink = 0.6 oz pur e alcohol) Comments No Sex and Gender Information Value Date Recorded Sex Assigned at Not on file Legal Sex Female 6:26 AM CLAIMS MANAGER Gender Identity Not on file Sexual Orientation Not on file Last Filed Vital Signs Vital Sign Reading Time Taken Comments Blood Pressure 142/77 05/21/2013 9:24 AM CDT Pulse 74 05/21/2013 9:24 AM CDT Temperature - - Respiratory Rate 20 03/21/2013 12:21 PM CLAIMS MANAGER Oxygen Saturation 96% 05/21/2013 9:24 AM CDT Inhaled Oxygen Concentration - - Weight 86.2 kg (190 lb) 05/21/2013 7:36 AM CDT Height 175.3 cm (5' 9 ) 05/21/2013 7:36 AM CDT Body Mass Index 28.06 05/21/2013 7:36 AM CDT Plan of Treatment Health Maintenance Due Date Last Done Comments BONE DENSITY TESTING 1937 DTAP/TDAP/TD VACCINES (1 - Tdap) 1956 PNEUMOCOCCAL VACCINE 50+ (1 of 1 - PCV) 11/15/1987 ZOSTER VACCINE (1 of 2) 11/15/1987 Respiratory Syncytial Virus (RSV) Vaccine Pt: or over 60 yrs (1 - 1-dose 75+ series) 2012 COVID-19 VACCINE ( - 2023-2 5 season) 2023 DEPRESSION SCREENING 03/06/2024 INFLUENZA VACCINE (Season Ended) 2024 HEPATITIS B VACCINE Aged Out No longe r eligible based on patient's age to complete this topic HIB VACCINE Aged Out No longer eligi ble based on patient's age to complete this topic HPV VACCINE Aged Out No longer eligi ble based on patient's age to complete this topic MENINGOCOCCAL (Group B) VACC INE SHARED DECISION-MAKING Aged Out No longer eligibl e based on patient's age to complete this topic MENINGOCOCCAL GROUPS A/C/Y/W VACCINE Aged Out No longer eligible b ased on patient's age to complete this topic Insurance MEDICARE [facility] Care Teams Hearing Healthcare Practitioner Relationship Specialty Start Date End Date Juan Carlos Eisenberg MD [address] [place] [address] PCP - General Internal Medicine 01/29/13
--- OUTSIDE RECORDS SUMMARY | 2024-07-10 12:18 | XMS_ITS | Continuity of Care Document ---
Author Organization [facility] Address [address] [place] [address] [address] [place] [address] Phone Care Team Providers Care Confectionery Drops Machine Operator Name Role Phone Fowler OD, Andre Unavailable Unavailable Procedures Procedure Date Office/outpatient Visit, Est Office/outpatient Visit, Est Office/outpatient Visit, Est Advance Directives Directive Yes / No Effective Date File Name No Information Encounters Encounter Description Practice Location Reason(s) For Visit Diagnoses Date Provider Providers Copied on Encounter Office/outpat ient Visit, [facility], [address] [place] [address] [address], [place], [place], [id number], tel:[phone] SEC [facility] No Information 0-200 7 Fowler OD Andre. [address], [place], [place], [facility], . tel:[phone] Office/outpat ient Visit, [facility], [address] [place] [address] [address], [place], [place], [id number], [place] tel:[phone] SEC [facility] No Information 0-200 7 Fowler OD Andre. [address], [place], [place], [facility], . tel:[phone] Office/outpat ient Visit, [facility], [address] [place] [address] [address], [place], [place], [id number], tel:[phone] SEC [facility] No Information Aug-2 3-200 7 Fowler OD Andre. [address] , [address], [place], [address], [place]. tel:[phone] Family History Family Member Type Diagnosis Age At Onset No Information Payers Payer name Insurance type Covered green party ID Authorreneea tikurt(s) Medicare [facility] [id number] Mail Handlers Benefit Plan Commercial [id number] Social History Type Description Quantity Date Captured [...]
--- OUTSIDE RECORDS SUMMARY | 2024-07-10 12:18 | XMS_ITS | Continuity of Care Document ---
Author Name [facility] Organization [facility] Care Team Providers Care Security Patrol Driver Name Role Phone [facility] Unavailable Unavailable Medications Combined list of outpatient medications from Department of Defense and Veterans Affairs facilities.Medications provided include 1) outpatient medications from the last 15 months, and 2) patient-reported medications. Medication Details Route Status Patient Instructions Prescription Expires Prescription Number Last Dispense Date Ordering Provider Order Date Order Qty Source dilTIAZem CD 240 mg/24 hour capsule 240 mg, See Instruct ions, Oral, BID, # 180 EA, 1 total refill(s ), Hard Stop Oral (given by mouth) Discont inued 06/09/2023 4 2023 180.0 Ambulat ory Pharmac y dilTIAZem CD 240 mg/24 hour capsule See Instruct ions, # 180 EA, 1 total refill(s ), Acute Complet ed 06/01/2023 3 2023 180.0 Ambulat ory Pharmac y dilTIAZem CD 240 mg/24 hour capsule 240 mg, Oral, BID, # 180 EA, 1 total refill(s ), Hard Stop Oral (given by mouth) Complet ed 05/31/2024 4 2024 180.0 Ambulat ory Pharmac y Diltiazem Hydrochlori de, 24 Hr Capsule Extended Release 240 mg Oral Be careful if taking OTCs.Dav e or use exactly as directed .Swallow whole. 05/31/2024 [id number] 4 2023 180 [facility] Kiran [facility]ER[facility] EMPAGLIFLOZ IN 25 MG ORAL TAB Check with your doctor before becoming . 05/31/2024 [id number] 4 2023 90 [facility]an [facility] [place] empaglifloz in 25 mg oral tablet TAKE ONE TABLET DAILY, # 90 EA, 1 total refill(s ), Acute Complet ed 06/01/2023 3 2023 90.0 Ambulat ory Pharmac y empaglifloz in 25 mg tablet See Instruct ions, # 90 EA, 1 total refill(s ), Hard Stop Ordered 01/07/2025 5 2024 90.0 Ambulat ory Pharmac y guanFACINE 2 mg oral tablet TAKE ONE TABLET DAILY, # 90 EA, 1 total refill(s ), Acute Complet ed 06/01/2023 3 2023 90.0 Ambulat ory Pharmac y guanFACINE 2 mg tablet 2 mg, Oral, Daily, # 90 EA, 1 total refill(s ), Hard Stop Oral (given by mouth) Discont inued 06/09/2023 3 2023 90.0 Ambulat ory Pharmac y guanFACINE 2 mg tablet See Instruct ions, # 90 EA, 1 total refill(s ), Hard Stop Ordered 01/07/2025 5 2024 90.0 Ambulat ory Pharmac y guanFACINE 2 mg tablet 2 mg, Oral, Daily, # 90 EA, 1 total refill(s ), Hard Stop Oral (given by mouth) Discont inued 01/10/2024 4 2023 90.0 Ambulat ory Pharmac y hydrALAZINE 50 mg oral tablet TAKE ONE TABLET THREE TIMES DAILY DIRECTED , # 270 EA, 1 total refill(s ), Acute Complet ed 06/01/2023 3 2023 270.0 Ambulat ory Pharmac y hydrALAZINE 50 mg tablet 50 mg, Oral, TID, # 270 EA, 1 total refill(s ), Hard Stop Oral (given by mouth) Discont inued 06/09/2023 4 2023 270.0 Ambulat ory Pharmac y hydrALAZINE 50 mg tablet 50 mg, Oral, TID, # 270 EA, 1 total refill(s ), Hard Stop Oral (given by mouth) Complet ed 05/31/2024 4 2024 270.0 Ambulat ory Pharmac y Hydralazine Hydrochlori de 50mg, (Apresoline ), Tablet, Oral Be careful if taking OTCs.Dav e or use exactly as directed . 05/31/2024 [id number] 4 2023 270 [facility] Kiran FERNANDEZ [place] hydrochloro thiazide-te lmisartan 25 mg-80 mg oral tablet TAKE ONE TABLET DAILY, # 90 EA, 1 total refill(s ), Acute Complet ed 06/01/2023 3 2023 90.0 Ambulat ory Pharmac y hydroCHLORO thiazide-te lmisartan 25 mg-80 mg tablet See Instruct ions, # 90 EA, 3 total refill(s ), Hard Stop Ordered 01/07/2025 4 2023 90.0 Ambulat ory Pharmac y Jardiance 25 mg tablet 25 mg, Oral, Daily, # 90 EA, 1 total refill(s ), Hard Stop Oral (given by mouth) Discont inued 06/09/2023 3 2023 90.0 Ambulat ory Pharmac y Jardiance 25 mg tablet 25 mg, Oral, Daily, # 90 EA, 1 total refill(s ), Hard Stop Oral (given by mouth) Discont inued 01/10/2024 4 2023 90.0 Ambulat ory Pharmac y Klor-Con M chloride ER 10 mEq tablet (dispersibl e) 10 mEq, Oral, Daily, # 90 EA, 1 total refill(s ), Hard Stop Oral (given by mouth) Complet ed 09/08/2023 3 2023 90.0 Ambulat ory Pharmac y Klor-Con M chloride ER 10 mEq tablet (dispersibl e) 10 mEq, Oral, Daily, # 90 EA, 1 total refill(s ), Hard Stop Oral (given by mouth) Complet ed 12/08/2023 3 2023 90.0 Ambulat ory Pharmac y metFORMIN 500 mg oral tablet, extended release TAKE ONE TABLET DAILY, # 90 EA, 1 total refill(s ), Acute Complet ed 06/01/2023 3 2023 90.0 Ambulat ory Pharmac y metFORMIN XR 500 mg/24 hour tablet 500 mg, Oral, Daily, # 90 EA, 1 total refill(s ), Hard Stop Oral (given by mouth) Complet ed 09/08/2023 3 2023 90.0 Ambulat ory Pharmac y metFORMIN XR 500 mg/24 hour tablet 500 mg, Oral, Daily, # 90 EA, 1 total refill(s ), Hard Stop Oral (given by mouth) Discont inued 01/17/2023 3 2022 90.0 Ambulat ory Pharmac y Micardis HCT 80 mg- 25 mg tablet = 1 tab(s), Oral, Daily, # 90 EA, 1 total refill(s ), Hard Stop Oral (given by mouth) Discont inued 06/09/2023 3 2023 90.0 Ambulat ory Pharmac y Micardis HCT 80 mg- 25 mg tablet = 1 tab(s), Oral, Daily, # 90 EA, 3 total refill(s ), Hard Stop Oral (given by mouth) Discont inued 01/10/2024 4 2023 90.0 Ambulat ory Pharmac y potassium chloride 10 mEq oral tablet, extended release TAKE ONE TABLET DAILY, # 90 EA, 1 total refill(s ), Acute Complet ed 06/01/2023 3 2023 90.0 Ambulat ory Pharmac y rosuvastati n 20 mg oral tablet TAKE ONE TABLET DAILY, # 90 EA, 1 total refill(s ), Acute Complet ed 06/01/2023 3 2023 90.0 Ambulat ory Pharmac y rosuvastati n 20 mg tablet 20 mg, Oral, Daily, # 90 EA, 1 total refill(s ), Hard Stop Oral (given by mouth) Discont inued 06/09/2023 3 2023 90.0 Ambulat ory Pharmac y rosuvastati n 20 mg tablet See Instruct ions, # 90 EA, 1 total refill(s ), Hard Stop Ordered 01/07/2025 5 2024 90.0 Ambulat ory Pharmac y rosuvastati n 20 mg tablet 20 mg, Oral, Daily, # 90 EA, 1 total refill(s ), Hard Stop Oral (given by mouth) Discont inued 01/10/2024 4 2023 90.0 Ambulat ory Pharmac y spironolact one (U/D) 25 MG ORAL TAB Take or use exactly as directed .May cause drowsine ss/dizzi ness. 05/31/2024 [id number] 4 [address] [place] [address] Kiran FERNANDEZ [place] spironolact one 25 mg tablet 25 mg, Oral, Daily, # 90 EA, 1 total refill(s ), Hard Stop Oral (given by mouth) Discont inued 06/09/2023 4 2023 90.0 Ambulat ory Pharmac y spironolact one 25 mg tablet 25 mg, Oral, Daily, # 90 EA, 1 total refill(s ), Hard Stop Oral (given by mouth) Complet ed 05/31/2024 4 2024 90.0 Ambulat ory Pharmac y Telmisartan 80mg + Hydrochloro thiazide 25mg, (Micardis-H CT), Tablet, Oral Be careful if taking OTCs.Dav e with food/mil k.Avoid exposure to sun.Take or use exactly as directed .Do not take if . 05/31/2024 [id number] 4 [address] [place] [address] Kiran FERNANDEZ ([facility] Allergies, Adverse Reactions, Alerts Combined list of allergies from Department of Defense and Veterans Affairs facilities. It does not include entries that were removed or entered in error. Substance Category Reaction Severity Reaction type Status Date Reported Comments Source No Known Allergies Drug allergy (disorder) active 08/24/2010 DoD Immunizations Combined list of available immunizations from the Department of Defense and Veterans Affairs facilities. Immunization Series Date Given Administered By Site Reaction Lot Number CVX Code Drug Printing Machine Operator Status Comments Source influenza, seasonal, injectable 2010 141 [employer] ls complet ed influenza , seasonal, injectabl e 11/25/10 Given Ambulat ory Pharmac y influenza, seasonal, injectable-pf 2010 TRANSCR IBED 140 Nov[employer] Pharm[employer] ls complet ed influenza , seasonal, injectabl e-pf 11/25/10 Given Ambulat ory Pharmac y influenza virus vaccine, whole virus 2000 [id number] t Arm [id number] sanofi pasteur complet ed influenza virus vaccine, whole virus 02/03/01 Given Ambulat ory Pharmac y influenza virus vaccine, whole virus 2000 [id number] sanofi pasteur complet ed influenza virus vaccine, whole virus 02/03/01 Given Ambulat ory Pharmac y influenza virus vaccine, whole virus 1 2000 Unknown, Provider [id number] 16 Sanofi Pasteur ([facility]) complet ed influenza virus vaccine, whole virus DoD Procedures Combined list of: 1) Procedures from Department of Veterans Affairs facilities [facility], not all [place] non-surgical procedures are included; 2) All procedures from the Department of Defense facilities. Procedure Procedure Type Code Date Perfomer Comments Sourc e No data available for this section Ambulatory P harmacy Social History Combined list of available smoking, tobacco, and other social history from Department of Defense and Veterans Affairs facilities. Social History Type Response Date Comment Sourc e This section is an empty social history section. DoD Assessment and Plan Combined list of future care activities from Department of Defense and Veterans Affairs facilities (e.g., assessment and plan notes, appointments, orders, and referrals). Additional future care activities may be listed in the Plan of Care section. Result Assessment and Plan Date Source Assessment and Plan No data available for this section 07/10/2024 Ambulatory Pharmacy Functional Status Combined list of recent functional and cognitive assessments recorded at Department of Defense and Veterans Affairs ([place]).VA Functional [place] Measurement (FIM) Scale: 1 = Total Assistance (Subject = 0% +), 2 = Maximal Assistance (Subject = 25% +), 3 = Moderate Assistance (Subject = 50% +), 4 = Minimal Assistance (Subject = 75% +), 5 = Supervision, 6 = Modified [place] (Device), 7 = Complete [place] (Timely, Safely). Assessment Date/Time Source Assessment Type Assessment Skill Assessment Score Assessment Details No data available for this section
[2024-07-10 14:25] LABS: Free T4 Free Thyroxine 1.32 ng/dL (0.78-2.19); Vitamin D 25 Hydroxy 74.4 ng/mL
[2024-07-10 14:29] LABS: Thyroid Stimulating Hormone 0.885 uIU/mL (0.465-4.680)
[2024-07-10 15:07] LABS: Folic Acid > 20.0 ng/mL (2.76->20)
[2024-07-13 15:33] LABS: Vitamin B6 9.1 ng/mL (2.1-21.7)
[2024-07-14 16:48] LABS: Vitamin B1 13 nmol/L (8-30)
[2024-07-15 04:23] LABS: Vitamin B2 8.4 nmol/L (6.2-39.0)
== END 2024-07-10 11:41 | disposition home or self-care (01) ==
LOC: ANHGOSHLAB 11:42
PROVIDERS: PCP Internal Medicine; Visit Provider Internal Medicine
DX: R41.89 Other symptoms and signs involving cognitive functions and awareness (principal); R41.3 Other amnesia; R93.0 Abnormal findings on diagnostic imaging of skull and head, not elsewhere classified
CPT/HCPCS: 36415; 82234; 82306; 82607; 82746; 84207; 84252; 84425; 84439; 84443

== ENCOUNTER 2024-09-16 13:23 | Outpatient (CLI) | payer MEDICARE, OTHER, SELFPAY ==
--- OUTSIDE RECORDS SUMMARY | 2024-09-16 13:30 | XMS_ITS | Clinical Summary ---
Author Organization [facility] Address [address] [place] [address] Phone Care Team Providers Care Kier Hand Name Role Phone Juan Carlos Eisenberg MD [...] MD Referring Provider: Shayy Grover MD [address] [facility] [address] [place] [address] Other: Problem Noted Date Diagnosed Date Breast lump in female 03/20/2015 Social History Tobacco Use Types Packs/Day Years Used Date Smoking Tobacco: Former Cigarettes Q uit: 03/30/1985 Smokeless Tobacco: Never Comments No Sex and Gender Information Value Date Recorded Sex Assigned at Not on file Legal Sex Female 9:32 AM STEAM CONDITIONER FILLING Gender Identity Not on file Sexual Orientation Not on file Last Filed Vital Signs Vital Sign Reading Time Taken Comments Blood Pressure 178/94 03/30/2015 11:06 AM STEAM CONDITIONER FILLING Pulse 85 03/30/2015 11:06 AM STEAM CONDITIONER FILLING Temperature - - Respiratory Rate - - Oxygen Saturation - - Inhaled Oxygen Concentration - - Weight 83 kg (183 lb) 03/30/2015 11:06 AM STEAM CONDITIONER FILLING Height 175.3 cm (5' 9) 03/30/2015 11:06 AM STEAM CONDITIONER FILLING Body Mass Index 27.02 03/30/2015 11:06 AM STEAM CONDITIONER FILLING Plan of Treatment Health Maintenance Due Date Last Done Comments DTAP/TDAP/TD VACCINES (1 - Tdap) 1954 PNEUMOCOCCAL VACCINE 50+ YEARS (1 of 1 - PCV) 11/14/18 88 ZOSTER VACCINE (1 of 2) 11/15/1987 OSTEOPOROSIS SCREENING 2002 RSV VACCINE (60+ or ) (1 - 1-dose 75+ series) 2012 INFLUENZA VACCINE (#1) 2024 Insurance MEDICARE PART A AND B [employer] A[employer] CHOICE POS II Care Teams Kier Hand Relationship Specialty Start Date End Date Juan Carlos Eisenberg MD PCP - General Internal Medicine 03/30/15
--- OUTSIDE RECORDS SUMMARY | 2024-09-16 13:30 | XMS_ITS | Referral Summary ---
Author Organization [facility] Address [address] [place] [address] Care Team Providers Care Pneumatic Jacketer Name Role Phone Juan Carlos Eisenberg MD Primary Care Provider [phone] Allergies No known active allergies Medications dilTIAZem [...] mg total) by mouth 03/26/2013 Active omega 6-uei-tek-fish oil 360-1,200 mg capsule,delayed release(DR/EC) Take by [...] the left renal artery on CTA from [place]. No evidence of right renal artery stenosis. [...] 1:55 PM CDT Height 172.7 cm (5' 8) 11/08/2023 1:55 PM CDT Body Mass Index 25.7 11/08/2023 1:55 PM CDT Plan of Treatment Not on file [facility] MEDICARE MEDICARE MAIL [employer]LERS Care Teams Pneumatic Jacketer Relationship Specialty Start Date End Date Juan Carlos Eisenberg MD [address] [facility] [address] [facility] [address] [place] [address] PCP - General 09/19/16
--- OUTSIDE RECORDS SUMMARY | 2024-09-16 13:30 | XMS_ITS | Continuity of Care Document ---
Author Organization [facility] Address [address] [place] [address] [address] [place] [address] Phone Care Team Providers Care Electrical Line Splicer Name Role Phone Fowler OD, Andre Unavailable Unavailable Procedures Procedure Date Office/outpatient Visit, Est Office/outpatient Visit, Est Office/outpatient Visit, Est Advance Directives Directive Yes / No Effective Date File Name No Information Encounters Encounter Description Practice Location Reason(s) For Visit Diagnoses Date Provider Providers Copied on Encounter Office/outpat ient Visit, [facility] [place] [place], [address] [place] [address] [address], [place], [place], [id number], tel:[phone] SEC [facility] No Information 0-200 7 Fowler OD Andre. [address], [place], [place], [facility], . tel:[phone] Office/outpat ient Visit, [facility] [place], [address] [place] [address] [address], [place], [place], [id number], [place] tel:[phone] [facility] No Information Aug-3 0-200 7 Fowler OD Andre. [address], [place], [place], [facility], . tel:[phone] Office/outpat ient Visit, [facility], [place], [address] [place] [address] [address], [place], [place], [id number], tel:[phone] [facility] No Information Aug-2 3-200 7 Fowler OD Andre. [email or web address], [place], [address], [place]. tel:[phone] Family History Family Member Type Diagnosis Age At Onset No Information Payers Payer name Insurance type Covered alliance party ID Authorreneea tikurt(s) Medicare [facility] [id number] Mail Handlers Benefit Plan Commercial [id number] Social History Type Description Quantity Date Captured [...]
--- OUTSIDE RECORDS SUMMARY | 2024-09-16 13:30 | XMS_ITS | Clinical Summary ---
Author Organization [facility] Address [address] [place] [address] Care Team Providers Care Cognos Administrator Name Role Phone Juan Carlos Eisenberg MD Primary Care Provider [phone] Source Comments [facility],non-owned Affiliates and Associated Physician Practices is amultiple site organization consisting of ambulatory clinics and hospital sitesin [place], [place], [place] and [place]. This disclosure is being madepursuant to the Care Everywhere program and may not contain all information available regarding this patient. Last updated 17.[facility] Allergies No known active allergies Medications * [...] 400 Units by mouth once daily. Active [place]-3 Fatty Acids (FISH OIL) 1200 MG CAPS [...] on file Legal Sex Female 6:26 AM AN EMPLOYEE SPONSOR OR ADVOCATE AND Gender Identity Not on file Sexual Orientation Not on file Last Filed Vital Signs Vital Sign Reading Time Taken Comments Blood Pressure 142/77 05/21/2013 9:24 AM CDT Pulse 74 05/21/2013 9:24 AM CDT Temperature - - Respiratory Rate 20 03/21/2013 12:21 PM AN EMPLOYEE SPONSOR OR ADVOCATE AND Oxygen Saturation 96% 05/21/2013 9:24 AM CDT Inhaled Oxygen Concentration - - Weight 86.2 kg (190 lb) 05/21/2013 7:36 AM CDT Height 175.3 cm (5' 9) 05/21/2013 7:36 AM CDT Body Mass Index [...] season) 2023 DEPRESSION SCREENING 03/06/2024 INFLUENZA VACCINE (#1) 2024 HEPATITIS B VACCINE Aged Out No [...] age to complete this topic Insurance MEDICARE [facility] Care Teams Cognos Administrator Relationship Specialty Start Date End Date Juan Carlos Eisenberg MD [address] [place] [address] PCP - General Internal Medicine 01/29/13
--- OUTSIDE RECORDS SUMMARY | 2024-09-16 13:30 | XMS_ITS | Clinical Summary ---
Author Organization [facility] Address [address] [place] [address] Care Team Providers Care Special Police Name Role Phone Juan Carlos Eisenberg MD Primary Care Provider [phone] Allergies No known active allergies Medications dilTIAZem [...] mg total) by mouth 03/26/2013 Active omega 3-eta-tcr-fish oil 360-1,200 mg capsule,delayed release(DR/EC) Take by [...] the left renal artery on CTA from [place]. No evidence of right renal artery stenosis. [...] Fall Risk Assessment 1935 Hemoglobin A1C 1935 Osteoporosis Screening-Bone Density Scan 1935 eGFR 1935 Dilated Eye Exam 1935 Foot Exam 1935 Lipid Panel 1935 DTaP/Tdap/Td Vaccine (1 - Tdap) 1948 Hepatitis B Screening 11/15/1953 Well Visit 65+ 2002 Influenza Vaccine (Season Ended) 2024 10/31/2018, 11/12/2017, 12/11/2016, Additional history exists Pneumococcal vaccine 65+ Completed 12/25/2018, 11/2016 Zoster Vaccine Completed 02/23/2019, 12/25/2018 Insurance MEDICARE [facility] PPO [employer] MEDICARE MEDICARE [employer] Care Teams Special Police Relationship Specialty Start Date End Date Juan Carlos Eisenberg MD [address] [place] [address] PCP - General 09/19/16
--- OUTSIDE RECORDS SUMMARY | 2024-09-16 13:30 | XMS_ITS | Continuity of Care Document ---
Author Name [facility] Organization [facility] Care Team Providers Care Floor Tech Name Role Phone [facility] Unavailable Unavailable Medications Combined list of outpatient [...] 4 2024 180.0 Ambulat ory Pharmac y empaglifloz in 25 mg oral tablet TAKE [...] 4 2024 270.0 Ambulat ory Pharmac y hydrochloro thiazide-te lmisartan 25 mg-80 mg oral [...] 4 2024 90.0 Ambulat ory Pharmac y Allergies, Adverse Reactions, Alerts Combined list of allergies from Department of Defense and Veterans Affairs facilities. It does not include entries that were removed or entered in error. Substance Category Reaction Severity Reaction type Status Date Reported Comments Source No Known Allergies Drug allergy (disorder) active 08/24/2010 [facility] Immunizations Combined list of available immunizations from the Department of Defense and Veterans Affairs facilities. Immunization Series Date Given Administered By Site Reaction Lot Number CVX Code Drug Supervisor Real Estate Office Status Comments Source influenza, seasonal, injectable 2010 141 Nov[employer] ls complet ed influenza , seasonal, injectabl e 11/25/10 Given Ambulat ory Pharmac y influenza, seasonal, injectable-pf 2010 TRANSCR IBED 140 Novartis Pharm[employer] ls complet ed influenza , seasonal, injectabl e-pf 11/25/10 Given Ambulat ory Pharmac y influenza virus vaccine, whole virus 2000 zzLef t Arm [id number] 16 sanofi pasteur complet ed influenza virus vaccine, whole virus 02/03/01 Given Ambulat ory Pharmac y influenza virus vaccine, whole virus 2000 [id number] 16 sanofi pasteur complet ed influenza virus vaccine, whole virus 02/03/01 Given Ambulat ory Pharmac y influenza virus vaccine, whole virus 1 2000 Unknown, Provider [id number] 16 Sanofi Pasteur (PMC) complet ed influenza virus vaccine, whole virus DoD Procedures Combined list of: 1) Procedures from Department of Veterans Affairs facilities [facility], not all [place] non-surgical procedures are included; 2) All procedures [...] Plan No data available for this section 09/16/2024 Ambulatory Pharmacy Functional Status Combined list of recent functional and cognitive assessments recorded at Department of Defense and Veterans Affairs (VA).VA Functional [place] Measurement (FIM) Scale: 1 = Total Assistance (Subject = 0% +), 2 = Maximal Assistance (Subject = 25% +), 3 = Moderate Assistance (Subject = 50% +), 4 = Minimal Assistance (Subject = 75% +), 5 = Supervision, 6 = Modified [place] (Device), 7 = Complete [place] (Timely, Safely). Assessment Date/Time Source Assessment Type Assessment Skill Assessment Score Assessment Details No data available for this section
[2024-09-16 17:34] LABS: Hematocrit 39.6 % (37.0-47.0); Hemoglobin 12.2 g/dL (12.0-15.0); Immature Granulocyte Percent A 0.0 % (0-0.5); Lymphocytes Absolute Auto 1.70 K/mm3 (0.9-3.2); Mean Corpuscular HGB Conc 30.8 g/dl (32-36); Mean Corpuscular Hemoglobin 27.0 pg (26-34); Mean Corpuscular Volume 87.6 fl (80-100); Nucleated Red Blood Cells Absolute Auto 0.000 K/mm3 (0.0-0.012); Nucleated Red Blood Cells Perc 0.0 % (0.0-0.2); Platelet Count Result 205 k/mm3 (150-375); Red Blood Count 4.52 M/mm3 (4.2-5.4); White Blood Count 5.1 K/mm3 (4.5-10.0)
[2024-09-16 17:41] LABS: Alanine Aminotransferase 33 U/L (6-35); Albumin Level 4.6 g/dL (3.5-5.1); Alkaline Phosphatase 87 U/L (38-126); Anion Gap 11 mmol/L (4-12); Aspartate Amino Transferase 50 U/L (14-36); Bilirubin,Total 0.3 mg/dL (0.2-1.3); Blood Urea Nitrogen 24 mg/dL (7-17); Calcium 10.1 mg/dL (8.4-10.2); Carbon Dioxide 26 mmol/L (22-30); Chloride 101 mmol/L (98-107); Cholesterol 189 mg/dL (0-200); Estimated Glomerular Filt Rate 47; Glucose 114 mg/dL (65-110); HDL Direct 77 mg/dL; Potassium 4.0 mmol/L (3.4-5.0); Sodium 138 mmol/L (137-145); Total Protein 8.8 g/dL (6.3-8.2); Triglycerides 66 mg/dL (<150)
[2024-09-16 17:47] LABS: Hemoglobin A1C 6.2 % (<5.7)
[2024-09-16 18:08] LABS: MALB Creatinine Ratio 191.7 mg/g (0-30)
[2024-09-16 18:27] LABS: Thyroid Stimulating Hormone 2.150 uIU/mL (0.465-4.680)
[2024-09-16 19:03] LABS: Vitamin B12 317.0 pg/mL (239-931)
[2024-09-17 11:07] LABS: Free T4 Free Thyroxine 1.17 ng/dL (0.78-2.19)
== END 2024-09-16 13:24 | disposition home or self-care (01) ==
LOC: ANHGOSHLAB 13:24
PROVIDERS: PCP Internal Medicine; Visit Provider Internal Medicine
DX: E78.2 Mixed hyperlipidemia (principal); I12.9 Hypertensive chronic kidney disease with stage 1 through stage 4 chronic kidney disease, or unspecified chronic kidney disease; N18.1 Chronic kidney disease, stage 1; E11.22 Type 2 diabetes mellitus with diabetic chronic kidney disease; E55.9 Vitamin D deficiency, unspecified; Z13.29 Encounter for screening for other suspected endocrine disorder; Z79.899 Other long term (current) drug therapy
CPT/HCPCS: 36415; 80053; 80061; 82043; 82306; 82607; 82746; 83036; 84439; 84443; 85025

== ENCOUNTER 2024-10-01 11:12 | Outpatient (CLI) | payer MEDICARE, OTHER, SELFPAY ==
--- OUTSIDE RECORDS SUMMARY | 2024-10-01 11:16 | XMS_ITS | Clinical Summary ---
Author Organization [facility] Address [address] [place] [address] Care Team Providers Care Steelscope Operator Name Role Phone Juan Carlos Eisenberg MD Primary Care Provider [phone] Allergies No known active allergies Medications dilTIAZem [...] mg total) by mouth 03/26/2013 Active omega 2-cnv-abj-fish oil 360-1,200 mg capsule,delayed release(DR/EC) Take by [...] the left renal artery on CTA from [place]. No evidence of right renal artery [...] Well Visit 65+ 2002 Influenza Vaccine (#1) 2024 9, 11/12/2017, 12/11/2016, Additional history exists Pneumococcal vaccine 65+ Completed 12/25/2018, 11/2016 Zoster Vaccine Completed 02/23/2019, 12/25/2018 Insurance MEDICARE [facility] PPO [employer] MEDICARE MEDICARE [employer] Care Teams Steelscope Operator Relationship Specialty Start Date End Date Juan Cralos Eisenberg MD [address] [place] [address] PCP - General 09/19/16
--- OUTSIDE RECORDS SUMMARY | 2024-10-01 11:16 | XMS_ITS | Continuity of Care Document ---
Author Name [facility] Organization [facility] Care Team Providers Care Oil And Gas Field Technician Name Role Phone [facility] Unavailable Unavailable Medications Combined list of outpatient [...] Known Allergies Drug allergy (disorder) active 08/24/2010 [facility] Immunizations Combined list of available immunizations from the Department of Defense and Veterans Affairs facilities. Immunization Series Date Given Administered By Site Reaction Lot Number CVX Code Drug Anti Air Warfare Operations Officer Status Comments Source influenza, seasonal, injectable 2010 141 Nov[employer]is [employer] ls complet ed influenza , seasonal, injectabl e 11/25/10 Given Ambulat ory Pharmac y influenza, seasonal, injectable-pf 2010 TRANSCR IBED 140 Novartis Pharm[employer] ls complet ed influenza , seasonal, injectabl e-pf 11/25/10 Given Ambulat ory Pharmac y influenza virus vaccine, whole virus 2000 zzLef t Arm [id number] 16 sanofi pasteur complet ed influenza virus vaccine, whole virus 02/03/01 Given Ambulat ory Pharmac y influenza virus vaccine, whole virus 2000 [id number] 16 sanofi pasteur complet ed influenza virus vaccine, whole virus 02/03/01 Given Ambulat ory Pharmac y influenza virus vaccine, whole virus 1 2000 Unknown, Provider [id number] 16 Sanofi Pasteur (PMC) complet ed influenza virus vaccine, whole virus DoD Procedures Combined list of: 1) Procedures from Department of Veterans Affairs facilities [facility], not all [place] non-surgical procedures are included; 2) All procedures [...] Plan No data available for this section 10/01/2024 Ambulatory Pharmacy Functional Status Combined list of recent functional and cognitive assessments recorded at Department of Defense and Veterans Affairs (VA).VA Functional [place] Measurement (FIM) Scale: 1 = Total Assistance (Subject = 0% +), 2 = Maximal Assistance (Subject = 25% +), 3 = Moderate Assistance (Subject = 50% +), 4 = Minimal Assistance (Subject = 75% +), 5 = Supervision, 6 = Modified [place] (Device), 7 = Complete [place] (Timely, Safely). Assessment Date/Time Source Assessment Type Assessment Skill Assessment Score Assessment Details No data available for this section
--- OUTSIDE RECORDS SUMMARY | 2024-10-01 11:16 | XMS_ITS | Clinical Summary ---
Author Organization [facility] Address [address] [place] [address] Care Team Providers Care Transplant Surgeon Name Role Phone Juan Carlos Eisenberg MD Primary Care Provider [phone] Source Comments [facility] [employer],non-owned Affiliates and Associated Physician Practices is amultiple site organization consisting of ambulatory clinics and hospital sitesin [place], [place], [place] and [place]. This disclosure is being madepursuant to the Care Everywhere program and may not contain all information available regarding this patient. Last updated 17.[facility] [employer] Allergies No known active allergies Medications * [...] 400 Units by mouth once daily. Active [place]-3 Fatty Acids (FISH OIL) 1200 MG CAPS [...] on file Legal Sex Female 6:26 AM CHINESE MEDICINE PRACTITIONER Gender Identity Not on file Sexual Orientation Not on file Last Filed Vital Signs Vital Sign Reading Time Taken Comments Blood Pressure 142/77 05/21/2013 9:24 AM CDT Pulse 74 05/21/2013 9:24 AM CDT Temperature - - Respiratory Rate 20 03/21/2013 12:21 PM CHINESE MEDICINE PRACTITIONER Oxygen Saturation 96% 05/21/2013 9:24 AM CDT [...] age to complete this topic Insurance MEDICARE [facility] Address: [address] [place] [address] Care Teams Transplant Surgeon Relationship Specialty Start Date End Date Juan Carlos Eisenberg MD [address] [place] [address] PCP - General Internal Medicine 01/29/13
--- OUTSIDE RECORDS SUMMARY | 2024-10-01 11:16 | XMS_ITS | Continuity of Care Document ---
Author Organization [facility] Address [address] [place] [address] [address] [place] [address] Phone Care Team Providers Care Swaging Machine Operator Name Role Phone Fowler OD, Andre Unavailable Unavailable Procedures Procedure Date Office/outpatient Visit, Est Office/outpatient Visit, Est Office/outpatient Visit, Est Advance Directives Directive Yes / No Effective Date File Name No Information Encounters Encounter Description Practice Location Reason(s) For Visit Diagnoses Date Provider Providers Copied on Encounter Office/outpat ient Visit, [facility], [address] [place] [address] [address], [place], [place], [id number], tel:[phone] [facility] No Information 0-200 7 Fowler OD Andre. [address], [place], [place], [facility], . tel:[phone] Office/outpat ient Visit, [facility], [address] [place] [address] [address], [place], [place], [id number], [place] tel:[phone] [facility] No Information Aug-3 0-200 7 Fowler OD Andre. [address], [place], [place], [facility], . tel:[phone] Office/outpat ient Visit, [facility], [address] [place] [address] [address], [place], [place], [id number], tel:[phone] [facility] No Information Aug-2 3-200 7 Fowler OD Andre. [address] , [address], [place], [address], [place]. tel:[phone] Family History Family Member Type Diagnosis Age At Onset No Information Payers Payer name Insurance type Covered constitution party ID Authorreneea tikurt(s) Medicare [facility] [id number] Mail Handlers Benefit Plan Commercial [id number] Social History Type Description Quantity Date Captured [...]
--- OUTSIDE RECORDS SUMMARY | 2024-10-01 11:16 | XMS_ITS | Referral Summary ---
Author Organization [facility] Address [address] [place] [address] Care Team Providers Care Bronc Buster Name Role Phone Juan Carlos Eisenberg MD Primary Care Provider [phone] Allergies No known active allergies Medications dilTIAZem [...] mg total) by mouth 03/26/2013 Active omega 5-wlh-kky-fish oil 360-1,200 mg capsule,delayed release(DR/EC) Take by [...] the left renal artery on CTA from [place]. No evidence of right renal artery stenosis. [...] of Treatment Not on file [facility] MEDICARE MEDICARE [employer] Care Teams Bronc Buster Relationship Specialty Start Date End Date Juan Carlos Eisenberg MD [address] [facility] [address] [place] [address] PCP - General 09/19/16
--- OUTSIDE RECORDS SUMMARY | 2024-10-01 11:16 | XMS_ITS | Clinical Summary ---
Author Organization [facility] Address [address] [place] [address] Phone Care Team Providers Care Topographical Field Assistant Name Role Phone Juan Carlos Eisenberg MD [...] MD Referring Provider: Shayy Grover MD [address] [place] [address] Other: Problem Noted Date Diagnosed Date Breast lump in female 03/20/2015 Social History Tobacco Use Types Packs/Day Years Used Date Smoking Tobacco: Former Cigarettes Q uit: 03/30/1985 Smokeless Tobacco: Never Comments No Sex and Gender Information Value Date Recorded Sex Assigned at Not on file Legal Sex Female 9:32 AM WASTE SPECIALIST Gender Identity Not on file Sexual Orientation Not on file Last Filed Vital Signs Vital Sign Reading Time Taken Comments Blood Pressure 178/94 03/30/2015 11:06 AM WASTE SPECIALIST Pulse 85 03/30/2015 11:06 AM WASTE SPECIALIST Temperature - - Respiratory Rate - - Oxygen Saturation - - Inhaled Oxygen Concentration - - Weight 83 kg (183 lb) 03/30/2015 11:06 AM WASTE SPECIALIST Height 175.3 cm (5' 9) 03/30/2015 11:06 AM WASTE SPECIALIST Body Mass Index 27.02 03/30/2015 11:06 AM WASTE SPECIALIST Plan of Treatment Health Maintenance Due Date Last Done Comments DTAP/TDAP/TD VACCINES (1 - Tdap) 1954 PNEUMOCOCCAL VACCINE 50+ YEARS (1 of 1 - PCV) 11/14/18 88 ZOSTER VACCINE (1 of 2) 11/15/1987 OSTEOPOROSIS SCREENING 2002 RSV VACCINE (60+ or ) (1 - 1-dose 75+ series) 2012 INFLUENZA VACCINE (#1) 2024 Insurance MEDICARE PART A AND B [employer] A[employer] CHOICE POS II Care Teams Topographical Field Assistant Relationship Specialty Start Date End Date Juan Carlos Eisenberg MD PCP - General Internal Medicine 03/30/15
--- NOTE | 2024-10-10 15:55 | WPDHOLTEREM ---
Holter/Event Monitor Holter/Event Monitor Date of procedure: 10/01/24 Holter/Event Procedure: 3-7 Day Holter Monitor Indications: Abnormal ECG Conclusion: 1. 3 days holter monitor on 10/01/24. 2. Predominant rhythm is sinus rhythm. HR range 60-179 bpm; average HR 79 bpm. 3. There are frequent premature supraventricular complexes at burden of 16.8%, occasional supraventricular couplets, and rare supraventricular triplets. There are 59 episodes of supraventricular tachycardia with fastest at 179 bpm and longest lasting 19 beats. 4. There are rare premature ventricular complexes, rare ventricular couplets, rare ventricular triplets, and longest ventricular trigeminy is 6 seconds. No ventricular tachycardia. 5. No significant pauses greater than 3 seconds. 6. No symptoms available for correlation.
== END 2024-10-01 11:13 | disposition home or self-care (01) ==
LOC: ANHCARD 11:14
PROVIDERS: PCP Internal Medicine; Visit Provider Internal Medicine
DX: R94.31 Abnormal electrocardiogram [ECG] [EKG] (principal); I49.3 Ventricular premature depolarization
CPT/HCPCS: 93242

== ENCOUNTER 2025-01-03 10:37 | Outpatient (CLI) | payer MEDICARE, OTHER, SELFPAY ==
--- OUTSIDE RECORDS SUMMARY | 2025-01-03 11:05 | XMS_ITS | Clinical Summary ---
Author Organization [facility] Address [address] [place] [address] Care Team Providers Care Accident Examiner Name Role Phone Juan Carlos Eisenberg MD Primary Care Provider [phone] Allergies No known active allergies Medications dilTIAZem [...] mg total) by mouth 03/26/2013 Active omega 6-nbr-jln-fish oil 360-1,200 mg capsule,delayed release(DR/EC) Take by [...] the left renal artery on CTA from [place]. No evidence of right renal artery stenosis. [...] pain 10/26/2016 Breast lump in female 03/20/2015 Encounters Date Type Department Care Team Description 12/11/2024 1:30 PM CDT - 12/11/2024 11:59 PM CDT Hospital Encounter [facility] Medical Office Building [address] [address] Renal artery stenosis; Other specified symptoms and signs involving the circulatory and respiratory systems Discharge Disposition: Discharge to home or self care from Last 3 Months Immunizations Immunization Administration Dates Next Due Influenza, [...] = 0.6 oz pur e alcohol) Comments Unknown Sex and Gender Information Value [...] Visit 65+ 2002 Influenza Vaccine (#1) 2024 4, 10/31/2018, 11/12/2017, Additional history exists Pneumococcal vaccine 65+ Completed 12/25/2018, 11/2016 Zoster Vaccine Completed 02/23/2019, 12/25/2018 Procedures Procedure Name Priority Date/Time Associated Diagnosis Comments US DUPLEX SCAN OF AORTA: INFERIOR VENA CAVA, ILIAC, COMPLETE Routine 12/11/2024 4:07 PM CDT Renal artery stenosis Other specified symptoms and signs involving the circulatory and respiratory systems from Last 3 Months Results * US Duplex Scan of Aorta; Inferior Vena Cava, Iliac, Complete (12/11/2024 4:07 PM CDT) Anatomical Region Laterality Modality Vascular Ultrasound 12/11/2024 2:21 PM CDT Narrative 12/13/2024 11:11 AM CDT Renal Artery Duplex Ultrasound Report Patient Name: NAYELI HUA Y : 1935 (89y ) Study Date: 12/11/2024 2:21:34 PM Sex: F Etymology Professor: RUBÉN RIGGS Provider: MULU PAGE Quality: Adequate Order Provider: MULU PAGE PROCEDURES: Renal Report: Non-invasive Duplex ultrasound imaging of the renal arteries and kidney parenchyma was performed. INDICATIONS: I70.1 Atherosclerosis of renal artery and R09.89 Other specified symptoms and signs involving the circulatory and respiratory systems. COMPARISONS: The previous exam was completed on 11-01-23. Compared to prior no significant change. MEASUREMENTS: Right Value Left Value Rt RAR 1.00 Lt RAR 2.13 Rt [place] Art [place] PSV 100 cm/sec Lt [place] Art [place] PSV 126 cm/sec Rt [place] Art [place] EDV 32 cm/sec Lt [place] Art [place] EDV 30 cm/sec Rt [place] Art Prx PSV 72 cm/sec Lt [place] Art Prx PSV 212 cm/sec Rt [place] Art Prx EDV 18 cm/sec Lt [place] Art Prx EDV 45 cm/sec Rt [place] Art Prx RI 1 cm/sec Lt [place] Art Prx RI 1 cm/sec Rt [place] Art Mid PSV 60 cm/sec Lt [place] Art Mid PSV 171 cm/sec Rt [place] Art Mid EDV 14 cm/sec Lt [place] Art Mid EDV 27 cm/sec Rt [place] Art Mid RI 1 cm/sec Lt [place] Art Mid RI 1 cm/sec Rt [place] Art Dst PSV 59 cm/sec Lt [place] Art Dst PSV 56 cm/sec Rt [place] Art Dst EDV 13 cm/sec Lt [place] Art Dst EDV 11 cm/sec Rt [place] Art Dst RI 1 cm/sec Lt [place] Art Dst RI 1 cm/sec Rt Kidney Length 10.0 cm Lt Kidney Length 11.2 cm FINDINGS: Right Renal Artery and Kidney: Right kidney size is within normal parameters. Hypoechoic non-vascular area(s) noted within kidney parenchyma. Left Renal Artery and Kidney: Elevated lt renal artery velocities. CONCLUSIONS: 1. The right renal artery is patent with normal velocities and renal artery to aortic systolic ratios. 2. Elevated velocities and renal artery to aortic systolic ratio indicates a 60% stenosis or greater in the left renal artery. ATTESTATION: I have reviewed and interpreted the pertinent images and measurements of this study. I attest to the conclusions in the final report that is provided above. Electronically Signed By: Fracisco Page MD 12/13/2024 11:09:40 AM CDT Procedure Note Fracisco Page MD - 12/13/2024 Renal Artery Duplex Ultrasound Report Patient Name: NAYELI HUA Y : 1935 (89y ) Study Date: 12/11/2024 2:21:34 PM Sex: F Etymology Professor: RUBÉN RIGGS Ref Provider: MULU PAGE Quality: Adequate Order Provider: MULU PAGE PROCEDURES: Renal Report: Non-invasive Duplex ultrasound imaging of the renal arteries and kidneyparenchyma was performed. INDICATIONS: I70.1 Atherosclerosis of renal artery and R09.89 Other specified symptomsand signs involving the circulatory and respiratory systems. COMPARISONS: The previous exam was completed on 11-01-23. Compared to prior nosignificant change. MEASUREMENTS: Right Value Left Value Rt RAR 1.00 Lt RAR 2.13 Rt [place] Art [place] PSV 100 cm/sec Lt [place] Art [place] PSV 126 cm/sec Rt [place] Art [place] EDV 32 cm/sec Lt [place] Art [place] EDV 30 cm/sec Rt [place] Art Prx PSV 72 cm/sec Lt [place] Art Prx PSV 212 cm/sec Rt [place] Art Prx EDV 18 cm/sec Lt [place] Art Prx EDV 45 cm/sec Rt [place] Art Prx RI 1 cm/sec Lt [place] Art Prx RI 1 cm/sec Rt [place] Art Mid PSV 60 cm/sec Lt [place] Art Mid PSV 171 cm/sec Rt [place] Art Mid EDV 14 cm/sec Lt [place] Art Mid EDV 27 cm/sec Rt [place] Art Mid RI 1 cm/sec Lt [place] Art Mid RI 1 cm/sec Rt [place] Art Dst PSV 59 cm/sec Lt [place] Art Dst PSV 56 cm/sec Rt [place] Art Dst EDV 13 cm/sec Lt [place] Art Dst EDV 11 cm/sec Rt [place] Art Dst RI 1 cm/sec Lt [place] Art Dst RI 1 cm/sec Rt Kidney Length 10.0 cm Lt Kidney Length 11.2 cm FINDINGS: Right Renal Artery and Kidney: Right kidney size is within normal parameters. Hypoechoic non-vasculararea(s) noted within kidney parenchyma. Left Renal Artery and Kidney: Elevated lt renal artery velocities. CONCLUSIONS: 1. The right renal artery is patent with normal velocities and renalartery to aortic systolic ratios. 2. Elevated velocities and renal artery to aortic systolic ratio indicatesa 60% stenosis or greater in the left renal artery. ATTESTATION: I have reviewed and interpreted the pertinent images and measurements ofthis study. I attest to the conclusions in the final report that is provided above. Electronically Signed By: Fracisco Page MD 12/13/2024 11:09:40 AM CDT Mulu Page MD [facility] PROCEDURES Final Result from Last 3 Months Insurance MEDICARE [facility] PPO [facility] LIFE MAIL HANDLERS MEDICARE [facility] Address: [address] [address] [place] [address] [facility] [employer] [facility] Care Teams Accident Examiner Relationship Specialty Start Date End Date Juan Carlos Eisenberg MD PCP - General 09/19/16
--- OUTSIDE RECORDS SUMMARY | 2025-01-03 11:05 | XMS_ITS | Clinical Summary ---
Author Organization [facility] Address [address] [place] [address] Care Team Providers Care Plastic Eye Technician Name Role Phone Juan Carlos Eisenberg MD Primary Care Provider [phone] Source Comments [facility] [employer],non-owned Affiliates and Associated Physician Practices is amultiple site organization consisting of ambulatory clinics and hospital sitesin [place], [place], [place] and [place]. This disclosure is being madepursuant to the Care Everywhere program and may not contain all information available regarding this patient. Last updated 17.[facility] [employer] Allergies No known active allergies Medications * [...] 400 Units by mouth once daily. Active [place]-3 Fatty Acids (FISH OIL) 1200 MG CAPS [...] on file Legal Sex Female 6:26 AM GROUND SUPPORT EQUIPMENT ASSEMBLER Gender Identity Not on file Sexual Orientation Not on file Last Filed Vital Signs Vital Sign Reading Time Taken Comments Blood Pressure 142/77 05/21/2013 9:24 AM CDT Pulse 74 05/21/2013 9:24 AM CDT Temperature - - Respiratory Rate 20 03/21/2013 12:21 PM GROUND SUPPORT EQUIPMENT ASSEMBLER Oxygen Saturation 96% 05/21/2013 9:24 AM CDT [...] yrs (1 - 1-dose 75+ series) 2012 DEPRESSION SCREENING 03/06/2024 COVID-19 VACCINE (1 - 2023-2 5 season) 2024 INFLUENZA VACCINE (#1) 2024 HEPATITIS B VACCINE [...] to complete this topic Insurance MEDICARE [facility] Care Teams Plastic Eye Technician Relationship Specialty Start Date End Date Juan Carlos Eisenberg MD [address] [place] [address] PCP - General Internal Medicine 01/29/13
--- OUTSIDE RECORDS SUMMARY | 2025-01-03 11:05 | XMS_ITS | Clinical Summary ---
Author Organization [facility] Address [address] [place] [address] Phone Care Team Providers Care Structural Steel Engineer Name Role Phone Juan Carlos Eisenberg MD [...] MD Referring Provider: Shayy Grover MD [address] [facility] [address] [place] [address] Other: Problem Noted Date Diagnosed Date Breast lump in female 03/20/2015 Social History Tobacco Use Types Packs/Day Years Used Date Smoking Tobacco: Former Cigarettes Q uit: 03/30/1985 Smokeless Tobacco: Never Comments No Sex and Gender Information Value Date Recorded Sex Assigned at Not on file Legal Sex Female 9:32 AM EQUIPMENT STERILIZER Gender Identity Not on file Sexual Orientation Not on file Last Filed Vital Signs Vital Sign Reading Time Taken Comments Blood Pressure 178/94 03/30/2015 11:06 AM EQUIPMENT STERILIZER Pulse 85 03/30/2015 11:06 AM EQUIPMENT STERILIZER Temperature - - Respiratory Rate - - Oxygen Saturation - - Inhaled Oxygen Concentration - - Weight 83 kg (183 lb) 03/30/2015 11:06 AM EQUIPMENT STERILIZER Height 175.3 cm (5' 9) 03/30/2015 11:06 AM EQUIPMENT STERILIZER Body Mass Index 27.02 03/30/2015 11:06 AM EQUIPMENT STERILIZER Plan of Treatment Health Maintenance Due Date Last Done Comments DTAP/TDAP/TD VACCINES (1 - Tdap) 1954 PNEUMOCOCCAL VACCINE 50+ YEARS (1 of 1 - PCV) 11/14/18 88 ZOSTER VACCINE (1 of 2) 11/15/1987 OSTEOPOROSIS SCREENING 2002 RSV VACCINE (60+ or ) (1 - 1-dose 75+ series) 2012 INFLUENZA VACCINE (#1) 2024 Insurance MEDICARE PART A AND B [employer] CHOICE POS II Care Teams Structural Steel Engineer Relationship Specialty Start Date End Date Juan Carlos Eisenberg MD PCP - General Internal Medicine 03/30/15
[2025-01-03 14:23] LABS: Anion Gap 5 mmol/L (4-12); Blood Urea Nitrogen 15 mg/dL (7-17); Calcium 9.7 mg/dL (8.4-10.2); Carbon Dioxide 32 mmol/L (22-30); Chloride 103 mmol/L (98-107); Cholesterol 220 mg/dL (0-200); Estimated Glomerular Filt Rate > 60; Glucose 106 mg/dL (65-110); HDL Direct 53 mg/dL; Potassium 4.3 mmol/L (3.4-5.0); Sodium 140 mmol/L (137-145); Triglycerides 63 mg/dL (<150)
[2025-01-03 15:43] LABS: Vitamin B12 492.0 pg/mL (239-931)
[2025-01-03 15:47] LABS: Hemoglobin A1C 5.9 % (<5.7)
== END 2025-01-03 10:38 | disposition home or self-care (01) ==
LOC: ANHGOSHLAB 10:38
PROVIDERS: PCP Internal Medicine; Visit Provider Internal Medicine
DX: E11.22 Type 2 diabetes mellitus with diabetic chronic kidney disease (principal); I12.9 Hypertensive chronic kidney disease with stage 1 through stage 4 chronic kidney disease, or unspecified chronic kidney disease; N18.1 Chronic kidney disease, stage 1; E78.2 Mixed hyperlipidemia; E53.8 Deficiency of other specified B group vitamins
CPT/HCPCS: 36415; 80048; 80061; 82607; 82746; 83036

== ENCOUNTER 2025-01-20 14:23 | Outpatient (NON) | payer MEDICARE, OTHER, SELFPAY ==
[2025-01-20 19:15] LABS: Add Urine Microscopic? YES; Appearance Urine Cloudy (Clear); Glucose Urine UA 3+ mg/dL (Negative); Leukocyte Esterase Ur Trace LEU/UL (Negative); Need Manual Microscopic Reviewed; Nitrate Urine Negative (Negative); Non Pathogenic Casts 0-2; Specific Grav Ur 1.019 (1.001-1.035)
--- OUTSIDE RECORDS SUMMARY | 2025-01-20 23:57 | XMS_ITS | Clinical Summary ---
Author Organization [facility] Address [address] [place] [address] Care Team Providers Care Healthcare Specialist Name Role Phone Juan Carlos Eisenberg MD Primary Care Provider [phone] Source Comments [facility],non-owned Affiliates and Associated Physician Practices is amultiple site organization consisting of ambulatory clinics and hospital sitesin [place], [place], [place] and [place]. This disclosure is being madepursuant to the Care Everywhere program and may not contain all information available regarding this patient. Last updated 17.[facility] Allergies No known active allergies Medications * [...] 400 Units by mouth once daily. Active Newton-3 Fatty Acids (FISH OIL) 1200 MG CAPS [...] on file Legal Sex Female 6:26 AM DIAMOND SIZER Gender Identity Not on file Sexual Orientation Not on file Last Filed Vital Signs Vital Sign Reading Time Taken Comments Blood Pressure 142/77 05/21/2013 9:24 AM CDT Pulse 74 05/21/2013 9:24 AM CDT Temperature - - Respiratory Rate 20 03/21/2013 12:21 PM DIAMOND SIZER Oxygen Saturation 96% 05/21/2013 9:24 AM CDT [...] series) 2012 DEPRESSION SCREENING 03/06/2024 COVID-19 VACCINE ( - 2024-2 6 season) 2024 INFLUENZA VACCINE (#1) 2024 HEPATITIS [...] this topic Insurance MEDICARE [facility] Care Teams Healthcare Specialist Relationship Specialty Start Date End Date Juan Carlos Eisenberg MD [address] [place] [address] PCP - General Internal Medicine 01/29/13
== END 2025-01-20 14:24 | disposition home or self-care (01) ==
LOC: ANHGOSHLAB 14:24
PROVIDERS: PCP Internal Medicine; Visit Provider Internal Medicine
DX: R35.0 Frequency of micturition (principal)
CPT/HCPCS: 81001; 87086